=== PATIENT | male | born 1940 | race Caucasian/White ===

== ENCOUNTER 2022-02-14 23:12 | Emergency (ER) | payer OTHER, SELFPAY ==
--- NOTE | ~2022-02-14 | XR_ITS ---
EXAMINATION: XR chest 1V portable DATE: 02/14/2022 23:54 INDICATION: Chest pain post fall TECHNIQUE: frontal view of the chest was obtained. COMPARISON: Chest radiograph dated 06/30/2019 FINDINGS: Small lung volumes. Bibasilar opacities represent atelectasis or pneumonia. No pleural effusion or pn eumothorax. Calcified nodule at the right lung base consistent with old granulomatous disease. The ca rdiomediastinal silhouette is normal. Median sternotomy wires and mediastinal surgical clips are seen , likely from prior coronary artery bypass grafting. IMPRESSION: 1. Mild bibasilar opacities which represent atelectasis or pneumonia. Reviewed, dictated and finalized at location A.
--- NOTE | ~2022-02-14 | CT_ITS ---
EXAMINATION: CT brain wo con DATE: 02/14/2022 23:50 INDICATION: Status post fall. Head injury. TECHNIQUE: Computed tomography (CT) of the head was performed without intravenous contrast. The dose- length product was 681.00 mGy-cm. Automated exposure control and iterative reconstruction technique w ere employed. COMPARISON: None FINDINGS: Generalized atrophy. There are scattered moderate periventricular and subcortical white mat ter changes, most likely related to small vessel ischemic disease (microangiopathy). There is a chron ic right parietal lobe infarction. No acute intracranial hemorrhage, infarction, mass or mass effect. No ventriculomegaly or there is intracranial atherosclerosis. IMPRESSION: 1. No acute intracranial abnormality. 2: Chronic right parietal lobe infarction. 3: Chronic age-related findings. Reviewed, dictated and finalized at location A.
--- NOTE | ~2022-02-14 | XR_ITS ---
EXAMINATION: XR hip BI 2V w AP pelvis DATE: 02/15/2022 01:44 INDICATION: Fall with concern for hip injury TECHNIQUE: Anteroposterior view of the pelvis and anteroposterior and frog-leg lateral views of the l eft hip and anteroposterior and frog leg lateral views of the right hip and were obtained. COMPARISON: None. FINDINGS: Bilateral total hip arthroplasties which appear well-seated in near-anatomic alignment. Old healed av ulsion fracture of the left lesser trochanter. No acute fracture. Moderate heterotopic ossification t he soft tissues between the greater trochanters and the superolateral margins of the acetabula. Moder ate lower lumbar spondylosis. IMPRESSION: 1. Bilateral total hip arthroplasties. No acute osseous abnormality. Reviewed, dictated and finalized at location A.
[2022-02-14 23:13] VITALS: BP 109/93; PULSE 66; RESP 13; TEMP 37.2; O2SAT 94
--- NOTE | 2022-02-14 23:21 | ED.FALL ---
HPI - Fall General Chief Complaint: Fall Stated Complaint: GLF THEN CP AFTER History of Present Illness HPI Narrative: 81-year-old male with history of dementia presenting to the emergency department for evaluation after having a ground-level fall. states that they have both been sitting out in the yard and she went inside to prepare his dinner. When she came back outside she found that the patient had wandered further into the yard and did have a ground-level fall landing on his right side. Initially to the the patient had been complaining of some right-sided chest pain. Patient was treated with a nitro due to his chest pain. EMS was called. Upon arrival to the scene patient denied any complaints. Patient's blood pressure was low due to the nitro. Upon arrival to the emergency department patient denies complaints. Patient is at his normal mental baseline per his . Patient does have dementia and is only alert and oriented to self. Related Data Home Medications Medication Instructions Recorded Confirmed alogliptin 12.5 mg tablet 12.5 mg PO DAILY 07/01/19 07/01/19 aspirin 81 mg tablet,delayed 81 mg PO HS 07/01/19 07/01/19 release cefadroxil 500 mg capsule 500 mg PO BID 07/01/19 07/01/19 cholecalciferol (vitamin D3) 25 1,000 unit PO DAILY 07/01/19 07/01/19 mcg (1,000 unit) capsule (Vitamin D3) fluticasone propionate 50 1 spray intranasal DAILY PRN Runny 07/01/19 07/01/19 mcg/actuation nasal Nose spray,suspension (Flonase Allergy Relief) lovastatin 40 mg tablet 20 mg PO QPM 07/01/19 07/01/19 metoprolol succinate 25 mg 12.5 mg PO DAILY 07/01/19 07/01/19 tablet,extended release 24 hr olmesartan 20 mg tablet 30 mg PO DAILY 07/01/19 07/01/19 omeprazole 40 mg capsule,delayed 40 mg PO DAILY 07/01/19 07/01/19 release trazodone 50 mg tablet 50 mg PO HS PRN Insomnia 07/01/19 07/01/19 vitamin B complex (B 1 tablet PO DAILY 07/01/19 07/01/19 Complex-Vitamin B12 tablet) Allergies Allergy/AdvReac Type Severity Reaction Status Date / Time Penicillins Allergy Severe Hives Verified 02/14/22 23:25 Review of Systems Review of Systems: Patient denies any complaints but review of systems is limited due to her baseline mental status. [facility] Past Medical History Medical History (Updated 02/15/22 @ 00:41 by Cristian Hayes MD) Anxiety Bipolar disorder Depression Surgical History Surgical History (Updated 06/30/19 @ 20:51 by Margaret Murray) History of open heart surgery Family History Family History (Updated 07/01/19 @ 01:09 by Trish Blakely RN) Mother Diabetes mellitus Hypertension Social History Social History (Updated 06/30/19 @ 20:53 by Margaret Murray) Years smoked: 10 Smoking status: Former smoker Tobacco type: cigarettes Alcohol intake: current Drinks per week: 1 Substance use: current Substance use type: marijuana Other substance usage details: medical marijuana RS oil Last use: 06/30/19 Gender identity (if verbalized by the patient): Male Spiritual care concerns: No Agree to blood products: Yes Exam Narrative: APPEARANCE: Well appearing, no pain, no distress, well-nourished. HEAD: normocephalic, atraumatic. EYES: PERRLA/EOMI, conjunctivae clear. NOSE: Normal no drainage EARS:TMS clear with good light reflex. NECK: Supple. No adenopathy, no masses. RESPIRATORY: Airway patent, respirations nonlabored. Clear to auscultation bilaterally, no rales, rhonchi, wheezing. CARDIOVASCULAR: Regular rate and rhythm without murmurs rubs or gallops. No chest wall tenderness to palpation. ABDOMINAL: Soft, nontender, nondistended, normal bowel sounds. MUSCULOSKELETAL: Moves all extremities. Strength/ROM intact, No edema, No calf tenderness. NEURO: Alert. Cranial nerves II through XII intact. Grossly intact SKIN: Warm, dry. Normal Color Course Course Emergency Course: Patient was able to ambulate without issue. Chest x-ray showed no acute
[2022-02-15 00:14] VITALS: BP 99/69; PULSE 65; RESP 12
--- NOTE | 2022-02-15 01:14 | PC.NURSE ---
Pts family member expressed concerns over pts hip, requesting XR. EDP notified. New orders placed.
[2022-02-15 01:16] VITALS: BP 104/64; PULSE 64; RESP 16
[2022-02-15 02:15] VITALS: BP 99/69; PULSE 64; RESP 12; O2SAT 94
== END 2022-02-15 02:16 | disposition home or self-care (01) ==
PROVIDERS: Emergency Provider Emergency Medicine
DX: R07.89 Other chest pain (principal); F03.90 Unspecified dementia, unspecified severity, without behavioral disturbance, psychotic disturbance, mood disturbance, and anxiety; F41.9 Anxiety disorder, unspecified; F31.9 Bipolar disorder, unspecified; Z87.891 Personal history of nicotine dependence; Z79.82 Long term (current) use of aspirin; W18.30XA Fall on same level, unspecified, initial encounter
CPT/HCPCS: 70450; 71045; 73521; 99284

== ENCOUNTER 2022-05-19 18:17 | Inpatient (IN) | payer OTHER, SELFPAY ==
[2022-05-19] VITALS (11 sets, daily range): BP systolic 102–142; BP diastolic 50–103; PULSE 53–69; RESP 12–17; TEMP 36.9; O2SAT 88–99
--- NOTE | ~2022-05-19 | XR_ITS ---
XR chest 1V portable 05/19/2022 19:57 Indication: Hypoxia. Former smoker. Procedure: AP portable chest Comparison: 02/14/2022 Findings: Status post median sternotomy for CABG. Bilateral interstitial infiltrates with peribronchi al thickening. No significant effusion or pneumothorax. No acute osseous abnormality. Impression: 1: Bilateral interstitial infiltrates which may represent edema or pneumonia. Reviewed, dictated and finalized at location A. Impression: 1: Bilateral interstitial infiltrates which may represent edema or pneumonia.
--- NOTE | ~2022-05-19 | MR_ITS ---
EXAMINATION: MR brain/brain stem wo con DATE: 05/20/2022 09:08 INDICATION: Slurred speech. Weakness. TECHNIQUE: Magnetic resonance imaging (MRI) of the brain and brainstem was performed without intraven ous contrast. COMPARISON: Head CT 05/19/2022 FINDINGS: There is a punctate focus of old microhemorrhage in right frontal lobe. There is an old inf arct in right occipital lobe. There are scattered areas of nonspecific increased T2-weighted signal i ntensity in the cerebral white matter. There is an old infarct in right frontoparietal region. There is no acute ischemic infarct or abnormal mass lesion. The ventricles are normal in size for the degre e of brain volume loss. There is mild mucosal thickening in the ethmoid sinuses. There are likely jaelyn nges of ocular lens replacement surgeries. There are trace mastoid effusions. IMPRESSION: 1. Old infarcts in the right occipital lobe and right frontoparietal region. 2. Moderate nonspecific cerebral white matter disease, which likely represents chronic small vessel i schemic disease. Reviewed, dictated and finalized at location D. IMPRESSION: 1. Old infarcts in the right occipital lobe and right frontoparietal region. 2. Moderate nonspecific cerebral white matter disease, which likely represents chronic small vessel ischemic disease.
--- NOTE | ~2022-05-19 | CT_ITS ---
EXAMINATION: CT brain wo con DATE: 05/19/2022 19:08 INDICATION: Altered mental status. TECHNIQUE: Computed tomography (CT) of the head was performed without intravenous contrast. The dose- length product was 681.00 mGy-cm. Automated exposure control and iterative reconstruction technique w ere employed. COMPARISON: CT dated 02/14/2022 FINDINGS: Chronic right posterior parietal infarction. Generalized atrophy. There are scattered moder ate periventricular and subcortical white matter changes, most likely related to small vessel ischemi c disease (microangiopathy). No ventriculomegaly or midline shift. There is intracranial atherosclero sis. No depressed skull fractures. Paranasal sinuses and mastoids are pneumatized. IMPRESSION: 1. No acute intracranial abnormality. No significant interval change. Reviewed, dictated and finalized at location A.
--- NOTE | 2022-05-19 18:21 | ECG_ITS ---
Measurements Intervals [place] Rate: 62 P: PA: 0 QRS: 66 QRSD: 115 T: 69 QT: 449 QTc: 458 Interpretive Statements SUSPECT ATRIAL FIBRILLATION REDUCED ECG QUALITY BECAUSE OF BASELINE ARTIFACT ST DEVIATION AND MARKED T-WAVE ABNORMALITY, CONSIDER ANTEROLATERAL ISCHEMIA [-0.5+ mV T-WAVE IN I/aVL/V3-V6] COMPARED TO ECG 06/30/2019 19:51:03 THIS ELECTROCARDIOGRAM HAS MORE BASELINE ARTIFACT ATRIAL FIBRILLATION APPEARS TO HAVE REPLACED SINUS RHYTHM Electronically Signed On 05-20-2022 13:37:36 CDT by Cornelius Pang M.D.
[2022-05-19 18:29] LABS: Glucose Point of Care 167 mg/dl (65-105)
[2022-05-19 18:58] LABS: Basophils Absolute Auto 0.1 K/mm3 (0.0-0.1); Basophils Percent Auto 1.1 % (0.2-1.2); Eosinophils Absolute Auto 0.5 K/mm3 (0-0.3); Eosinophils Percent Auto 4.6 % (0-4.4); Hematocrit 53.1 % (42.0-52.0); Hemoglobin 17.1 g/dL (14.0-18.0); Immature Granulocyte Absolute 0.02 K/mm3 (0.00-0.031); Immature Granulocyte Percent A 0.2 % (0-0.5); Lymphocytes Absolute Auto 2.68 K/mm3 (0.9-3.2); Lymphocytes Percent Auto 24.4 % (18.3-44.2); Mean Corpuscular HGB Conc 32.2 g/dl (32-36); Mean Corpuscular Hemoglobin 32.1 pg (26-34); Mean Corpuscular Volume 99.8 fl (80-100); Monocytes Absolute Auto 0.7 K/mm3 (0.1-0.6); Monocytes Percent Auto 6.7 % (2.6-8.5); Neutrophils Absolute Auto 6.9 K/mm3 (1.3-6.7); Platelet Count Result 240 k/mm3 (150-375); Red Blood Count 5.32 M/mm3 (4.6-6.20); Red Cell Distribution Width 13.4 % (11.5-14.5)
[2022-05-19 18:59] LABS: Appearance Urine Clear (Clear); Bilirubin Urine 1+ (Negative); Blood Urine 1+ (Negative); Color Urine Yellow (Yellow); Glucose Urine UA 3+ mg/dL (Negative); Ketones Urine 1+ mg/dL (Negative); Leukocyte Esterase Ur Negative LEU/UL (Negative); Nitrate Urine Negative (Negative); Protein Urine Negative (Negative); Specific Grav Ur 1.015 (1.001-1.035); pH Urine 5.5 (5.0-9.0)
[2022-05-19 19:02] LABS: Mucus Urine Rare /lpf; WBC Urine 0-3 /hpf
[2022-05-19 19:07] LABS: Add Urine Microscopic? YES
[2022-05-19 19:08] LABS: INR 1.1; Prothrombin Time 13.6 Seconds (11.1-14.7)
[2022-05-19 19:08] LABS: Alanine Aminotransferase 19 U/L (6-50); Albumin Level 4.2 g/dL (3.5-5.1); Alkaline Phosphatase 87 U/L (38-126); Anion Gap 12 mmol/L (8-16); Aspartate Amino Transferase 27 U/L (17-59); Bilirubin,Total 0.8 mg/dL (0.2-1.3); Blood Urea Nitrogen 22 mg/dL (9-20); Carbon Dioxide 30 mmol/L (22-30); Chloride 104 mmol/L (98-107); Estimated CRCL calculation 53 ml/min; Estimated Glomerular Filt Rate > 60; Glucose 172 mg/dL (65-110); Potassium 3.9 mmol/L (3.4-5.0); Sodium 146 mmol/L (137-145)
[2022-05-19 19:09] LABS: Partial Thromboplastin Time 30.7 SECONDS (22.3-36.8)
--- NOTE | 2022-05-19 19:12 | ED.AMS ---
HPI - Altered Mental Status General Chief Complaint: Altered Mental Status <Viki Gonzalez PA-C - Last Filed: 05/20/22 01:29> Stated Complaint: AMS <BREEZY Velasquez Last Filed: 05/20/22 01:29> Time Seen by Provider: 05/19/22 18:26 <Viki Gonzalez PA-C - Last Filed: 05/20/22 01:29> Source: patient <BREEZY Velasquez Last Filed: 05/20/22 01:29> Mode of arrival: ambulatory <BREEZY Velasquez Last Filed: 05/20/22 01:29> Limitations: no limitations <BREEZY Velasquez Last Filed: 05/20/22 01:29> History of Present Illness HPI narrative: This is a 81-year-old male that presents to the emergency department for altered mental status. 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 He has not wanted to eat much. He has been sleeping most of the day. Has not had any specific complaints. Patient is alert and oriented to self which is his baseline due to history of dementia. <BREEZY Velasquez Last Filed: 05/20/22 01:29> Related Data Home Medications: Home Medications Medication Instructions Recorded Confirmed alogliptin 12.5 mg tablet 12.5 mg PO DAILY 07/01/19 07/01/19 aspirin 81 mg tablet,delayed 81 mg PO HS 07/01/19 07/01/19 release cefadroxil 500 mg capsule 500 mg PO BID 07/01/19 07/01/19 cholecalciferol (vitamin D3) 25 1,000 unit PO DAILY 07/01/19 07/01/19 mcg (1,000 unit) capsule (Vitamin D3) fluticasone propionate 50 1 spray intranasal DAILY PRN Runny 07/01/19 07/01/19 mcg/actuation nasal Nose spray,suspension (Flonase Allergy Relief) lovastatin 40 mg tablet 20 mg PO QPM 07/01/19 07/01/19 metoprolol succinate 25 mg 12.5 mg PO DAILY 07/01/19 07/01/19 tablet,extended release 24 hr olmesartan 20 mg tablet 30 mg PO DAILY 07/01/19 07/01/19 omeprazole 40 mg capsule,delayed 40 mg PO DAILY 07/01/19 07/01/19 release trazodone 50 mg tablet 50 mg PO HS PRN Insomnia 07/01/19 07/01/19 vitamin B complex (B 1 tablet PO DAILY 07/01/19 07/01/19 Complex-Vitamin B12 tablet) <Viki Gonzalez PA-C - Last Filed: 05/20/22 01:29> Allergies/Adverse Reactions: Allergies Allergy/AdvReac Type Severity Reaction Status Date / Time Penicillins Allergy Severe Hives Verified 02/14/22 23:25 morphine AdvReac Hallucinati Verified 05/19/22 23:28 ng <Viki Gonzalez PA-C - Last Filed: 05/20/22 01:29> Review of Systems Review of Systems: ROS unobtainable: Yes unobtainable due to medical condition <Viki Gonzalez PA-C - Last Filed: 05/20/22 01:29> [facility] Past Medical History Medical History: Medical History (Updated 05/20/22 @ 01:29 by Viki Gonzalez PA-C) Anxiety Bipolar disorder Depression Diabetes History of dementia <Viki Gonzalez PA-C - Last Filed: 05/20/22 01:29> Surgical History Surgical History: Surgical History (Updated 06/30/19 @ 20:51 by Margaret Murray) History of open heart surgery <Viki Gonzalez PA-C - Last Filed: 05/20/22 01:29> Family History Family History: Family History (Updated 05/20/22 @ 00:53 by Fauzia Valle RN) Mother Diabetes mellitus Hypertension Father No problems noted. Sibling Hypertension <Viki Gonzalez PA-C - Last Filed: 05/20/22 01:29> Social History Social History: Social History (Updated 06/30/19 @ 20:53 by Margaret Murray) Years smoked: 10 Smoking status: Former smoker Tobacco type: cigarettes Second hand tobacco smoke exposure: No Smoking end date: 12/12/98 Alcohol intake: unknown Drinks per week: 1 Substance use: unknown Substance use type: marijuana Other substance usage details: medical marijuana RS oil Last use: 06/30/19 Gender identity (if verbalized by the patient): Male Spiritual care concerns: No Agree to blood products: Yes <Viki Gonzalez PA-C - Last Filed: 05/20/22 01:29> Exam Narrative: GENERAL: Elderly, well-nourished, and i
[2022-05-19] MEDS: SODIUM CHLORIDE 0.9% IV 500 ML 999 ML IV CONT (19:30)
[2022-05-19 19:43] LABS: Lipase 18 U/L (23-300)
[2022-05-19 19:56] LABS: Troponin I < 0.012 ng/mL (0.000-0.034)
[2022-05-19 21:30] LABS: Influenza A QL RT-PCR Negative (Negative); Influenza B QL RT-PCR Negative (Negative); SARS-CoV-2 RNA PCR Negative
[2022-05-19 22:20] LABS: NT Pro B Type Natriuretic Pept 400 pg/mL (5-100)
--- NOTE | 2022-05-19 23:05 | PM.IMHP ---
H&P: HPI History of Present Illness Date/Time: 05/19/22 23:05 Chief Complaint: AMS Narrative: This is an 81-year-old male with past medical history significant for Alzheimer's dementia lives at home with who is his caregiver. Patient was brought to the emergency room due to altered mental status according to he was not his usual patient is unable to give any history due to advanced dementia. According to he has been sleeping most of the day however did not notice any fevers, rigors, chills, nausea, vomiting, or diarrhea, no cough, no sputum production, no shortness of breath. according to he seemed to have lost strength on his left side and was unable to make a fist with his left hand and was mumbling words thought that he had a stroke called EMS and patient was brought to the emergency room, preliminary workup was significant for: x-ray of the chest IMPRESSION: 1. No acute cardiopulmonary disease. CT head IMPRESSION: 1. No acute intracranial abnormality. No significant interval change. Review of Systems Review of Systems: ROS unobtainable: Yes unobtainable due to medical condition ( advanced Alzheimer's) [facility] Past Medical History Medical History (Updated 05/20/22 @ 03:51 by Celine Ohara MD) Anxiety Bipolar disorder Depression Diabetes History of dementia Surgical History Surgical History (Updated 06/30/19 @ 20:51 by Margaret Murray) History of open heart surgery Family History Family History (Updated 05/20/22 @ 00:53 by Fauzia Valle RN) Mother Diabetes mellitus Hypertension Father No problems noted. Sibling Hypertension Social History Social History (Updated 06/30/19 @ 20:53 by Margaret Murray) Years smoked: 10 Smoking status: Former smoker Tobacco type: cigarettes Second hand tobacco smoke exposure: No Smoking end date: 12/12/98 Alcohol intake: unknown Drinks per week: 1 Substance use: unknown Substance use type: marijuana Other substance usage details: medical marijuana RS oil Last use: 06/30/19 Gender identity (if verbalized by the patient): Male Spiritual care concerns: No Agree to blood products: Yes Meds Home Medications and Allergies Home Medications Medication Instructions Recorded Confirmed Type alogliptin 12.5 mg tablet 12.5 mg PO DAILY 07/01/19 07/01/19 History aspirin 81 mg tablet,delayed 81 mg PO HS 07/01/19 07/01/19 History release cefadroxil 500 mg capsule 500 mg PO BID 07/01/19 07/01/19 History cholecalciferol (vitamin D3) 25 1,000 unit PO DAILY 07/01/19 07/01/19 History mcg (1,000 unit) capsule (Vitamin D3) fluticasone propionate 50 1 spray intranasal DAILY PRN Runny 07/01/19 07/01/19 History mcg/actuation nasal Nose spray,suspension (Flonase Allergy Relief) lovastatin 40 mg tablet 20 mg PO QPM 07/01/19 07/01/19 History metoprolol succinate 25 mg 12.5 mg PO DAILY 07/01/19 07/01/19 History tablet,extended release 24 hr olmesartan 20 mg tablet 30 mg PO DAILY 07/01/19 07/01/19 History omeprazole 40 mg capsule,delayed 40 mg PO DAILY 07/01/19 07/01/19 History release trazodone 50 mg tablet 50 mg PO HS PRN Insomnia 07/01/19 07/01/19 History vitamin B complex (B 1 tablet PO DAILY 07/01/19 07/01/19 History Complex-Vitamin B12 tablet) Allergies Allergy/AdvReac Type Severity Reaction Status Date / Time Penicillins Allergy Severe Hives Verified 02/14/22 23:25 morphine AdvReac Hallucinati Verified 05/19/22 23:28 ng Vital Signs Vital Signs - 24 hr 05/19/22 18:21 05/19/22 18:45 05/19/22 19:15 Temperature 98.5 F Pulse Rate 69 69 63 Respiratory Rate 14 14 16 Blood Pressure 142/103 H 114/69 102/71 Pulse Oximetry 98 96 92 Oxygen Delivery Room Air 05/19/22 20:01 05/19/22 20:31 05/19/22 21:19 Temperature Pulse Rate 53 L 56 L 62 Respiratory Rate 12 12 12 Blood Pressure 107/82 Pulse Oximetry 97 99 98 Oxygen Delivery 05/19/22
--- NOTE | 2022-05-19 23:16 | PC.NURSE ---
Assumed care of pt at this time. Pt resting on stretcher, alert to person. Pts at bedside updated on POC.
[2022-05-20] VITALS (12 sets, daily range): BP systolic 90–118; BP diastolic 49–75; PULSE 56–75; RESP 18–21; TEMP 36.2–36.6; O2SAT 93–100; BMI 29.0
--- NOTE | 2022-05-20 | ECHO_ITS ---
Patient Info Name: Richard Davis Age: 81 years : 1940 Gender: Male Ht: 67 in Wt: 185 lbs BSA: 2.01 m2 HR: 89 bpm BP: 111 / 65 mmHg Heart Rhythm: Atrial Fibrillation Technical Quality: Fair Exam Date: 05/20/2022 10:37 AM Exam Location: [facility] Pulmonary Exam Room: 257 Patient Status: Inpatient Admit Date: 05/20/2022 Staff Ordering Physician: Celine Ohara MD Senior Interaction Designer: Shaina Chan RDCS Attending Provider: Celine Ohara MD Referring Physician: Lev ROTHMAN; Exam Type: CA echo doppler color flow Study Info Indications - afib Complete two-dimensional, color flow and Doppler transthoracic echocardiogram is performed. Summary 1. Complete two-dimensional, color flow and Doppler transthoracic echocardiogram is performed. 2. Left ventricular chamber dimension is normal. 3. Left ventricular systolic function is normal, estimated at 60-65%. 4. There is mildly increased left ventricular wall thickness. 5. The left ventricular diastolic function is normal. 6. E/e' 9 is minimally elevated. 7. Atrial fibrillation. 8. Left atrial chamber dimension is moderately enlarged. 9. There is mild aortic valve sclerosis. 10. The mitral valve has mildly calcified annulus. 11. There is trace tricuspid valve regurgitation. 12. No pulmonary hypertension, estimated pulmonary arterial systolic pressure is 28 mmHg. Left Ventricle E/e' 9 is minimally elevated. Atrial fibrillation. Left ventricular chamber dimension is normal. Left ventricular systolic function is normal, estimated at 60-65%. There is mildly increased left ventricular wall thickness. The left ventricular diastolic function is normal. Right Ventricle Right ventricular chamber dimension is not well visualized. Left Atria Left atrial chamber dimension is moderately enlarged. Right Atria Right atrial chamber dimension is normal. Aortic Valve The aortic valve is trileaflet. There is mild aortic valve sclerosis. There is no aortic valve stenosis. There is no aortic valve regurgitation. Pulmonic Valve There is no pulmonic regurgitation. Mitral Valve The mitral valve has mildly calcified annulus. There is no mitral valve stenosis. There is no mitral valve regurgitation. Tricuspid Valve There is trace tricuspid valve regurgitation. No pulmonary hypertension, estimated pulmonary arterial systolic pressure is 28 mmHg. Pericardium/Pleural There is no pericardial effusion. Inferior Vena Cava Inferior vena cava is not well visualized. Aorta The aortic root size at the sinus of Valsalva is normal. Left Ventricular Outflow Tract Name Value Normal LVOT 2D LVOT Diameter 2.0 cm LVOT Doppler LVOT Peak Velocity 73 cm/s LVOT Peak Gradient 2 mmHg LVOT Mean Gradient 1 mmHg LVOT VTI 12 cm LVOT VTI/AV VTI Ratio 0.8 LVOT Stroke Volume 37 ml Pulmonic Valve
--- NOTE | 2022-05-20 00:24 | ADMGEN ---
This patient, Richard Davis, was admitted to Medical Room 257-01. Patient/family oriented to hospital policies and general routines including ID bracelet, bed and alarms, visiting hours, pain management, procedures, bathroom and other care routines, personal items, smoking policy, room service/diet, and visiting hours. Information on how to activate the Rapid Response Team has been discussed. Patient/Family are encouraged to report perceived risks to care and to ask questions if they do not understand what they are told or what they should do.
[2022-05-20] MEDS: HALOPERIDOL LACTATE 5 MG/ML VIAL IM (03:58)
[2022-05-20 05:24] LABS: Basophils Absolute Auto 0.1 K/mm3 (0.0-0.1); Eosinophils Absolute Auto 0.6 K/mm3 (0-0.3); Eosinophils Percent Auto 4.9 % (0-4.4); Hematocrit 50.9 % (42.0-52.0); Hemoglobin 15.9 g/dL (14.0-18.0); Immature Granulocyte Absolute 0.03 K/mm3 (0.00-0.031); Immature Granulocyte Percent A 0.3 % (0-0.5); Lymphocytes Absolute Auto 3.54 K/mm3 (0.9-3.2); Mean Corpuscular HGB Conc 31.2 g/dl (32-36); Mean Corpuscular Hemoglobin 32.1 pg (26-34); Mean Corpuscular Volume 102.6 fl (80-100); Mean Platelet Volume 9.7 fl (7.4-10.4); Monocytes Absolute Auto 0.9 K/mm3 (0.1-0.6); Neutrophils Absolute Auto 6.3 K/mm3 (1.3-6.7); Neutrophils Percent Auto 54.8 % (45.5-73.1); Platelet Count Result 209 k/mm3 (150-375); Red Blood Count 4.96 M/mm3 (4.6-6.20); Red Cell Distribution Width 13.3 % (11.5-14.5); White Blood Count 11.4 K/mm3 (4.5-10.0)
[2022-05-20 05:26] LABS: Alanine Aminotransferase 17 U/L (6-50); Albumin Level 3.8 g/dL (3.5-5.1); Alkaline Phosphatase 84 U/L (38-126); Anion Gap 11 mmol/L (8-16); Aspartate Amino Transferase 25 U/L (17-59); Bilirubin,Total 0.9 mg/dL (0.2-1.3); Blood Urea Nitrogen 20 mg/dL (9-20); Calcium 8.3 mg/dL (8.4-10.2); Carbon Dioxide 27 mmol/L (22-30); Chloride 102 mmol/L (98-107); Estimated CRCL calculation 53 ml/min; Estimated Glomerular Filt Rate > 60; Glucose 105 mg/dL (65-110); Potassium 3.5 mmol/L (3.4-5.0); Sodium 140 mmol/L (137-145)
--- NOTE | 2022-05-20 06:33 | ECG_ITS ---
Measurements Intervals [place] Rate: 57 P: [place]: 0 QRS: 35 QRSD: 115 T: 35 QT: 507 QTc: 495 Interpretive Statements ATRIAL FLUTTER/TACHYCARDIA WITH CONTROLLED VENTRICULAR RESPONSE MODERATE INTRAVENTRICULAR CONDUCTION DELAY [110+ ms QRS DURATION] NONSPECIFIC T-WAVE AT COMPARED TO ECG 05/19/2022 19:22:57 NO SIGNIFICANT CHANGE Electronically Signed On 05-20-2022 13:42:11 CDT by Cornelius Pang M.D.
[2022-05-20] MEDS: GLUCAGON FOR INJ 1 MG VIAL IM (06:38)
[2022-05-20 06:53] LABS: Glucose Point of Care 116 mg/dl (65-105)
[2022-05-20] MEDS: ENOXAPARIN 40 MG/0.4 ML SYRINGE SUB-Q (08:23)
[2022-05-20] MEDS: PANTOPRAZOLE 40 MG TABLET PO ×2 (08:23→17:19)
[2022-05-20] MEDS: OLMESARTAN MEDOXOMIL 10 MG TABLET 30 MG PO (08:23)
[2022-05-20 09:29] LABS: Glucose Point of Care 115 mg/dl (65-105)
[2022-05-20 11:58] LABS: Glucose Point of Care 151 mg/dl (65-105)
--- NOTE | 2022-05-20 14:00 | P.PNIM_ITS ---
Progress Note: A&P Assessment and Plan (1) Pneumonia: Qualifiers: Laterality: bilateral Lung location: lower lobe of lung Pneumonia type: due to unspecified organism Qualified Code(s): J18.9 - Pneumonia, unspecified organism Code(s): J18.9 - Pneumonia, unspecified organism Status: Acute Assessment and Plan: * Chest xray indicated bilateral pulmonary infiltrates, edema vs pna * Blood cultures pending * no notable shortness of breath * Ceftriaxone and azithromycin ordered * Supplemental oxygen, wean to maintain saturation >90% * Was able to wean to room air, saturation was 99 * Trend labs * Adjust therapy as indicated (2) Acute metabolic encephalopathy: Code(s): G93.41 - Metabolic encephalopathy Status: Acute Assessment and Plan: * Presented with altered mental status, slurred speech, and weakness * Head CT shows no abnormality * 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 * Could be related to chronic dementia, infection (PNA), or possible stroke * Trend mental status * adjust therapy accordingly (3) Acute hypoxemic respiratory failure: Code(s): J96.01 - Acute respiratory failure with hypoxia Status: Acute Assessment and Plan: * supplemental oxygen as needed * wean off as possible (4) Alzheimer's dementia: Code(s): G30.9 - Alzheimer's disease, unspecified; F02.80 - Dementia in other diseases classified elsewhere, unspecified severity, without behavioral disturbance, psychotic disturbance, mood disturbance, and anxiety Status: Acute Assessment and Plan: * end stage * A&O x 1 * Baseline according to the ED is A&O x1 * 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 (5) Diabetes: Code(s): E11.9 - Type 2 diabetes mellitus without complications Status: Acute Assessment and Plan: * Glucose 116 * Trend glucose * Accu AC/HS * ISS * Hypoglycemic protocol * Adjust therapy as indicated (6) Atrial fibrillation: Qualifiers: Atrial fibrillation type: unspecified Qualified Code(s): I48.91 - Unspecified atrial fibrillation Code(s): I48.91 - Unspecified atrial fibrillation Status: Acute Assessment and Plan: * rate controlled * No anticoagulation Time Spent With Patient Time with patient: Greater than 35 minutes Subjective Date/time seen: 05/20/22 1400 Interval history: 05/20/22 1400 Patient appears to be comfortable. Currently he is laying in bed. His daughter was present and was feeding him. He kept wring his hands and stated that they hurt. His daughter stated that she felt that he was in his normal state of health. Could not get a complete review of systems due to mental status. 05/19/22? 23:05 ? This is an 81-year-old male with past medical history significant for Alzheimer's dementia? lives at home with who is his caregiver.? Patient was brought to the emergency room due to altered mental status according to he was not his usual patient is unable to give any history due to advanced dementia.? According to he has been sleeping most of the day however did not notice any fevers, rigors, chills, nausea, vomiting, or diarrhea,? no cough, no sputum production, no shortness of breath. according to he seemed to have lost strength on his left side and was unable to make a fist with his
--- NOTE | 2022-05-20 14:00 | PM.IMPN ---
Progress Note: A&P Assessment and Plan (1) Pneumonia: Qualifiers: Laterality: bilateral Lung location: lower lobe of lung Pneumonia type: due to unspecified organism Qualified Code(s): J18.9 - Pneumonia, unspecified organism Code(s): J18.9 - Pneumonia, unspecified organism Status: Acute Assessment and Plan: Chest xray indicated bilateral pulmonary infiltrates, edema vs pna Blood cultures pending no notable shortness of breath Ceftriaxone and azithromycin ordered Supplemental oxygen, wean to maintain saturation >90% Was able to wean to room air, saturation was 99 Trend labs Adjust therapy as indicated (2) Acute metabolic encephalopathy: Code(s): G93.41 - Metabolic encephalopathy Status: Acute Assessment and Plan: Presented with altered mental status, slurred speech, and weakness Head CT shows no abnormality 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 Could be related to chronic dementia, infection (PNA), or possible stroke Trend mental status adjust therapy accordingly (3) Acute hypoxemic respiratory failure: Code(s): J96.01 - Acute respiratory failure with hypoxia Status: Acute Assessment and Plan: supplemental oxygen as needed wean off as possible (4) Alzheimer's dementia: Code(s): G30.9 - Alzheimer's disease, unspecified; F02.80 - Dementia in other diseases classified elsewhere, unspecified severity, without behavioral disturbance, psychotic disturbance, mood disturbance, and anxiety Status: Acute Assessment and Plan: end stage A&O x 1 Baseline according to the ED is A&O x1 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 (5) Diabetes: Code(s): E11.9 - Type 2 diabetes mellitus without complications Status: Acute Assessment and Plan: Glucose 116 Trend glucose Accu AC/HS ISS Hypoglycemic protocol Adjust therapy as indicated (6) Atrial fibrillation: Qualifiers: Atrial fibrillation type: unspecified Qualified Code(s): I48.91 - Unspecified atrial fibrillation Code(s): I48.91 - Unspecified atrial fibrillation Status: Acute Assessment and Plan: rate controlled No anticoagulation Time Spent With Patient Time with patient: Greater than 35 minutes Subjective Date/time seen: 05/20/22 1400 Interval history: 05/20/221399 Patient appears to be comfortable. Currently he is laying in bed. His daughter was present and was feeding him. He kept wring his hands and stated that they hurt. His daughter stated that she felt that he was in his normal state of health. Could not get a complete review of systems due to mental status. 05/19/22? 23:05 ? This is an 81-year-old male with past medical history significant for Alzheimer's dementia? lives at home with who is his caregiver.? Patient was brought to the emergency room due to altered mental status according to he was not his usual patient is unable to give any history due to advanced dementia.? According to he has been sleeping most of the day however did not notice any fevers, rigors, chills, nausea, vomiting, or diarrhea,? no cough, no sputum production, no shortness of breath. according to he seemed to have lost strength on his left side and was unable to make a fist with his left hand and was mumbling words thought that he had a stroke called EMS and patient was brought to the emergency room. Review of Systems Review of Systems: All systems reviewed & are unremarkable except as noted in HPI and below ROS unobtainable: Yes unobtainable due to medical condition ( advanced Alzheimer's) Exam Const: General: comfortable, no acute distress, well developed, ill appearing, lethargic, average body habitus and other ( patient with blank staring look in his face) Nutritional Appearance: average body habitus Orientation/c
[2022-05-20] MEDS: POTASSIUM CHLORIDE 20 MEQ TABLET PO (15:35)
[2022-05-20] MEDS: FUROSEMIDE INJ 40 MG/4 ML VIAL IV PUSH (15:35)
[2022-05-20 17:00] LABS: Glucose Point of Care 152 mg/dl (65-105)
[2022-05-20] MEDS: GABAPENTIN 100 MG CAPSULE PO (17:19)
[2022-05-20] MEDS: LOVASTATIN 20 MG TABLET PO (17:20)
[2022-05-21] VITALS (10 sets, daily range): BP systolic 102–112; BP diastolic 59–81; PULSE 62–73; RESP 16–18; TEMP 36.3–36.8; O2SAT 93–96
[2022-05-21 05:04] LABS: Basophils Absolute Auto 0.1 K/mm3 (0.0-0.1); Basophils Percent Auto 0.9 % (0.2-1.2); Eosinophils Absolute Auto 0.6 K/mm3 (0-0.3); Eosinophils Percent Auto 5.3 % (0-4.4); Hematocrit 49.7 % (42.0-52.0); Hemoglobin 16.3 g/dL (14.0-18.0); Immature Granulocyte Absolute 0.03 K/mm3 (0.00-0.031); Immature Granulocyte Percent A 0.3 % (0-0.5); Lymphocytes Absolute Auto 3.48 K/mm3 (0.9-3.2); Lymphocytes Percent Auto 29.5 % (18.3-44.2); Mean Corpuscular HGB Conc 32.8 g/dl (32-36); Mean Corpuscular Hemoglobin 31.8 pg (26-34); Mean Corpuscular Volume 97.1 fl (80-100); Mean Platelet Volume 9.7 fl (7.4-10.4); Monocytes Percent Auto 8.6 % (2.6-8.5); Neutrophils Absolute Auto 6.5 K/mm3 (1.3-6.7); Neutrophils Percent Auto 55.4 % (45.5-73.1); Platelet Count Result 234 k/mm3 (150-375); Red Blood Count 5.12 M/mm3 (4.6-6.20); White Blood Count 11.8 K/mm3 (4.5-10.0)
[2022-05-21 05:24] LABS: Alanine Aminotransferase 17 U/L (6-50); Albumin Level 3.9 g/dL (3.5-5.1); Alkaline Phosphatase 91 U/L (38-126); Anion Gap 9 mmol/L (8-16); Aspartate Amino Transferase 29 U/L (17-59); Bilirubin,Total 0.8 mg/dL (0.2-1.3); Blood Urea Nitrogen 22 mg/dL (9-20); Calcium 8.2 mg/dL (8.4-10.2); Carbon Dioxide 30 mmol/L (22-30); Chloride 99 mmol/L (98-107); Estimated CRCL calculation 44 ml/min; Estimated Glomerular Filt Rate > 60; Glucose 134 mg/dL (65-110); Potassium 3.3 mmol/L (3.4-5.0); Sodium 138 mmol/L (137-145)
[2022-05-21 09:19] LABS: Glucose Point of Care 138 mg/dl (65-105)
[2022-05-21] MEDS: ENOXAPARIN 40 MG/0.4 ML SYRINGE SUB-Q (09:32)
[2022-05-21] MEDS: GABAPENTIN 100 MG CAPSULE PO ×3 (09:33→16:48)
[2022-05-21] MEDS: ESCITALOPRAM OXALATE 10 MG TABLET 20 MG PO (09:33)
[2022-05-21] MEDS: PANTOPRAZOLE 40 MG TABLET PO ×2 (09:33→16:48)
--- NOTE | 2022-05-21 10:12 | PCSTNOTE ---
Bedside swallowing evaluation completed. Patient's daughter present and provided answers to questions and assisted in cueing patient to respond as well. Patient positioned upright in bed, but leaning slightly to the left. Some minimal left sided facial weakness, however, lingual mobility is not impaired on left. Recommendation: Soft and bite-sized diet, level 6. Thin liquids. Utilize swallowing precautions (please refer to swallowing precaution recommendations section . Patient needs supervision and assistance to eat/drink. No swallowing therapy is recommended at this time. Thank you for the referral of this patient.
--- NOTE | 2022-05-21 11:30 | P.PNIM_ITS ---
Progress Note: A&P Assessment and Plan (1) Pneumonia: Qualifiers: Laterality: bilateral Lung location: lower lobe of lung Pneumonia type: due to unspecified organism Qualified Code(s): J18.9 - Pneumonia, unspecified organism Code(s): J18.9 - Pneumonia, unspecified organism Status: Acute Assessment and Plan: * Chest xray indicated bilateral pulmonary infiltrates, edema vs pna * Blood cultures grew gram positive cocci in chains * no notable shortness of breath * Ceftriaxone, Azithromycin, and Vancomycin, continue for now * Supplemental oxygen, wean to maintain saturation >90% * Was able to wean to room air, saturation was 99% * Trend labs * Adjust therapy as indicated (2) Acute metabolic encephalopathy: Code(s): G93.41 - Metabolic encephalopathy Status: Acute Assessment and Plan: * Presented with altered mental status, slurred speech, and weakness * Head CT shows no abnormality * 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 * Could be related to chronic dementia, infection (PNA), or possible stroke * Trend mental status * adjust therapy accordingly (3) Acute hypoxemic respiratory failure: Code(s): J96.01 - Acute respiratory failure with hypoxia Status: Acute Assessment and Plan: * supplemental oxygen as needed * wean off as possible (4) Alzheimer's dementia: Code(s): G30.9 - Alzheimer's disease, unspecified; F02.80 - Dementia in other diseases classified elsewhere, unspecified severity, without behavioral disturbance, psychotic disturbance, mood disturbance, and anxiety Status: Acute Assessment and Plan: * end stage * A&O x 1 * Baseline according to the ED is A&O x1 * 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 (5) Diabetes: Code(s): E11.9 - Type 2 diabetes mellitus without complications Status: Acute Assessment and Plan: * Glucose 134 * Trend glucose * Accu AC/HS * ISS * Hypoglycemic protocol * Adjust therapy as indicated (6) Atrial fibrillation: Qualifiers: Atrial fibrillation type: unspecified Qualified Code(s): I48.91 - Unspecified atrial fibrillation Code(s): I48.91 - Unspecified atrial fibrillation Status: Acute Assessment and Plan: * rate controlled * No anticoagulation (7) Bacteremia: Code(s): R78.81 - Bacteremia Status: Acute Assessment and Plan: * Blood culture grew gram cocci in chains in the anaerobic bottle only * Vancomycin added * WBC stable, however, trending up, currently 11.8 * Continue to trend * Could be a contaminate * Adjust sensitivities as indicated (8) Hypotension: Code(s): I95.9 - Hypotension, unspecified Status: Acute Assessment and Plan: * BPs are labile * All home blood pressure medications are on hold * Continue to trend BP * Adjust therapy as indicated Time Spent With Patient Time with patient: Greater than 35 minutes Subjective Date/time seen: 05/21/221129 Interval history: 05/21/221129 Patient seems to be doing a lot better today. Patient is alert and active in the room. He did state that his hand still hurt. He did not have any other complaints however when I asked him if he was having chest pain eat
--- NOTE | 2022-05-21 11:30 | PM.IMPN ---
Progress Note: A&P Assessment and Plan (1) Pneumonia: Qualifiers: Laterality: bilateral Lung location: lower lobe of lung Pneumonia type: due to unspecified organism Qualified Code(s): J18.9 - Pneumonia, unspecified organism Code(s): J18.9 - Pneumonia, unspecified organism Status: Acute Assessment and Plan: Chest xray indicated bilateral pulmonary infiltrates, edema vs pna Blood cultures grew gram positive cocci in chains no notable shortness of breath Ceftriaxone, Azithromycin, and Vancomycin, continue for now Supplemental oxygen, wean to maintain saturation >90% Was able to wean to room air, saturation was 99% Trend labs Adjust therapy as indicated (2) Acute metabolic encephalopathy: Code(s): G93.41 - Metabolic encephalopathy Status: Acute Assessment and Plan: Presented with altered mental status, slurred speech, and weakness Head CT shows no abnormality 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 Could be related to chronic dementia, infection (PNA), or possible stroke Trend mental status adjust therapy accordingly (3) Acute hypoxemic respiratory failure: Code(s): J96.01 - Acute respiratory failure with hypoxia Status: Acute Assessment and Plan: supplemental oxygen as needed wean off as possible (4) Alzheimer's dementia: Code(s): G30.9 - Alzheimer's disease, unspecified; F02.80 - Dementia in other diseases classified elsewhere, unspecified severity, without behavioral disturbance, psychotic disturbance, mood disturbance, and anxiety Status: Acute Assessment and Plan: end stage A&O x 1 Baseline according to the ED is A&O x1 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 (5) Diabetes: Code(s): E11.9 - Type 2 diabetes mellitus without complications Status: Acute Assessment and Plan: Glucose 134 Trend glucose Accu AC/HS ISS Hypoglycemic protocol Adjust therapy as indicated (6) Atrial fibrillation: Qualifiers: Atrial fibrillation type: unspecified Qualified Code(s): I48.91 - Unspecified atrial fibrillation Code(s): I48.91 - Unspecified atrial fibrillation Status: Acute Assessment and Plan: rate controlled No anticoagulation (7) Bacteremia: Code(s): R78.81 - Bacteremia Status: Acute Assessment and Plan: Blood culture grew gram cocci in chains in the anaerobic bottle only Vancomycin added WBC stable, however, trending up, currently 11.8 Continue to trend Could be a contaminate Adjust sensitivities as indicated (8) Hypotension: Code(s): I95.9 - Hypotension, unspecified Status: Acute Assessment and Plan: BPs are labile All home blood pressure medications are on hold Continue to trend BP Adjust therapy as indicated Time Spent With Patient Time with patient: Greater than 35 minutes Subjective Date/time seen: 05/21/221129 Interval history: 05/21/221129 Patient seems to be doing a lot better today. Patient is alert and active in the room. He did state that his hand still hurt. He did not have any other complaints however when I asked him if he was having chest pain eat say yes there sitting over there. He is able to feed himself. Talked to the family about further needs. Family would like for him to get out of bed will consult PT and OT at this time. Will talk to attending ambulatory care about possible rehab post discharge. I have also discussed with the family about current findings in the blood cultures however patient does not exhibit any signs of bacteremia at this time. Will await sensitivities. Complete review of systems was unable to be obtained due to patient's mental status. Family was concerned about hypotension at this time however I explained to them that it seems to be reasonable at this time
[2022-05-21 12:09] LABS: Glucose Point of Care 155 mg/dl (65-105)
[2022-05-21 16:39] LABS: Glucose Point of Care 128 mg/dl (65-105)
[2022-05-21] MEDS: LOVASTATIN 20 MG TABLET PO (17:17)
[2022-05-21 20:37] LABS: Glucose Point of Care 182 mg/dl (65-105)
[2022-05-21] MEDS: ASPIRIN 81 MG ENTERIC TABLET PO (20:42)
[2022-05-21] MEDS: LORATADINE 10 MG TABLET PO (20:42)
[2022-05-22] VITALS (9 sets, daily range): BP systolic 101–115; BP diastolic 53–74; PULSE 66–135; RESP 14–20; TEMP 36.2–36.8; O2SAT 94–98
[2022-05-22 06:00] LABS: Basophils Absolute Auto 0.1 K/mm3 (0.0-0.1); Basophils Percent Auto 0.9 % (0.2-1.2); Eosinophils Absolute Auto 0.7 K/mm3 (0-0.3); Hematocrit 49.3 % (42.0-52.0); Hemoglobin 16.4 g/dL (14.0-18.0); Immature Granulocyte Absolute 0.03 K/mm3 (0.00-0.031); Immature Granulocyte Percent A 0.3 % (0-0.5); Lymphocytes Absolute Auto 3.32 K/mm3 (0.9-3.2); Lymphocytes Percent Auto 30.7 % (18.3-44.2); Mean Corpuscular HGB Conc 33.3 g/dl (32-36); Mean Corpuscular Hemoglobin 31.9 pg (26-34); Mean Corpuscular Volume 95.9 fl (80-100); Mean Platelet Volume 9.7 fl (7.4-10.4); Monocytes Absolute Auto 0.9 K/mm3 (0.1-0.6); Monocytes Percent Auto 8.7 % (2.6-8.5); Neutrophils Absolute Auto 5.8 K/mm3 (1.3-6.7); Neutrophils Percent Auto 53.4 % (45.5-73.1); Platelet Count Result 234 k/mm3 (150-375); Red Blood Count 5.14 M/mm3 (4.6-6.20); Red Cell Distribution Width 12.8 % (11.5-14.5); White Blood Count 10.8 K/mm3 (4.5-10.0)
[2022-05-22 06:10] LABS: Alanine Aminotransferase 21 U/L (6-50); Albumin Level 3.9 g/dL (3.5-5.1); Alkaline Phosphatase 98 U/L (38-126); Anion Gap 8 mmol/L (8-16); Aspartate Amino Transferase 33 U/L (17-59); Bilirubin,Total 0.7 mg/dL (0.2-1.3); Blood Urea Nitrogen 21 mg/dL (9-20); Calcium 8.4 mg/dL (8.4-10.2); Carbon Dioxide 30 mmol/L (22-30); Chloride 98 mmol/L (98-107); Estimated CRCL calculation 48 ml/min; Estimated Glomerular Filt Rate > 60; Glucose 114 mg/dL (65-110); Magnesium 2.1 mg/dL (1.6-2.3); Potassium 3.6 mmol/L (3.4-5.0); Sodium 136 mmol/L (137-145)
[2022-05-22 08:48] LABS: Glucose Point of Care 128 mg/dl (65-105)
[2022-05-22] MEDS: PANTOPRAZOLE 40 MG TABLET PO ×2 (09:51→17:36)
[2022-05-22] MEDS: GABAPENTIN 100 MG CAPSULE PO ×3 (09:51→17:36)
[2022-05-22] MEDS: ESCITALOPRAM OXALATE 10 MG TABLET 20 MG PO (09:51)
[2022-05-22] MEDS: ENOXAPARIN 40 MG/0.4 ML SYRINGE SUB-Q (09:52)
[2022-05-22 11:43] LABS: Glucose Point of Care 207 mg/dl (65-105)
--- NOTE | 2022-05-22 15:00 | P.PNIM_ITS ---
Progress Note: A&P Assessment and Plan (1) Pneumonia: Qualifiers: Laterality: bilateral Lung location: lower lobe of lung Pneumonia type: due to unspecified organism Qualified Code(s): J18.9 - Pneumonia, unspecified organism Code(s): J18.9 - Pneumonia, unspecified organism Status: Acute Assessment and Plan: * Chest xray indicated bilateral pulmonary infiltrates, edema vs pna * Blood cultures grew gram positive cocci in chains * no notable shortness of breath * Ceftriaxone, Azithromycin, and Vancomycin, continue for now * Supplemental oxygen, wean to maintain saturation >90% * Was able to wean to room air, saturation was 99% * Trend labs * Adjust therapy as indicated (2) Acute metabolic encephalopathy: Code(s): G93.41 - Metabolic encephalopathy Status: Acute Assessment and Plan: * Presented with altered mental status, slurred speech, and weakness * Head CT shows no abnormality * 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 * Could be related to chronic dementia, infection (PNA), or possible stroke * Trend mental status * adjust therapy accordingly * Seems to be resolving (3) Acute hypoxemic respiratory failure: Code(s): J96.01 - Acute respiratory failure with hypoxia Status: Acute Assessment and Plan: * Resolved * supplemental oxygen as needed * wean off as possible (4) Alzheimer's dementia: Code(s): G30.9 - Alzheimer's disease, unspecified; F02.80 - Dementia in other diseases classified elsewhere, unspecified severity, without behavioral disturbance, psychotic disturbance, mood disturbance, and anxiety Status: Acute Assessment and Plan: * end stage * A&O x 1 * Baseline according to the ED is A&O x1 * 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 (5) Diabetes: Code(s): E11.9 - Type 2 diabetes mellitus without complications Status: Acute Assessment and Plan: * Glucose 114 * Trend glucose * Accu AC/HS * ISS * Hypoglycemic protocol * Adjust therapy as indicated (6) Atrial fibrillation: Qualifiers: Atrial fibrillation type: unspecified Qualified Code(s): I48.91 - Unspecified atrial fibrillation Code(s): I48.91 - Unspecified atrial fibrillation Status: Acute Assessment and Plan: * rate controlled * No anticoagulation (7) Bacteremia: Code(s): R78.81 - Bacteremia Status: Acute Assessment and Plan: * Blood culture grew enterococcus faecalis, staphylococcus haemolytica, and staphylococcus epodermis in the anaerobic bottle only * Vancomycin added * WBC stable trending down, currently 10.8 * Continue to trend * Seems to be more of a contaminate * Repeat blood cultures show NGTD * Adjust sensitivities as indicated (8) Hypotension: Code(s): I95.9 - Hypotension, unspecified Status: Acute Assessment and Plan: * BPs are labile, more stable * All home blood pressure medications are on hold * Continue to trend BP * Adjust therapy as indicated Time Spent With Patient Time: about 35 minutes of talking with the patient and his family Time with patient: Greater than 35 minutes Subjective Date/time seen: 05/22/22 1500 Interval history: 05/22
--- NOTE | 2022-05-22 15:00 | PM.IMPN ---
Progress Note: A&P Assessment and Plan (1) Pneumonia: Qualifiers: Laterality: bilateral Lung location: lower lobe of lung Pneumonia type: due to unspecified organism Qualified Code(s): J18.9 - Pneumonia, unspecified organism Code(s): J18.9 - Pneumonia, unspecified organism Status: Acute Assessment and Plan: Chest xray indicated bilateral pulmonary infiltrates, edema vs pna Blood cultures grew gram positive cocci in chains no notable shortness of breath Ceftriaxone, Azithromycin, and Vancomycin, continue for now Supplemental oxygen, wean to maintain saturation >90% Was able to wean to room air, saturation was 99% Trend labs Adjust therapy as indicated (2) Acute metabolic encephalopathy: Code(s): G93.41 - Metabolic encephalopathy Status: Acute Assessment and Plan: Presented with altered mental status, slurred speech, and weakness Head CT shows no abnormality 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 Could be related to chronic dementia, infection (PNA), or possible stroke Trend mental status adjust therapy accordingly Seems to be resolving (3) Acute hypoxemic respiratory failure: Code(s): J96.01 - Acute respiratory failure with hypoxia Status: Acute Assessment and Plan: Resolved supplemental oxygen as needed wean off as possible (4) Alzheimer's dementia: Code(s): G30.9 - Alzheimer's disease, unspecified; F02.80 - Dementia in other diseases classified elsewhere, unspecified severity, without behavioral disturbance, psychotic disturbance, mood disturbance, and anxiety Status: Acute Assessment and Plan: end stage A&O x 1 Baseline according to the ED is A&O x1 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 (5) Diabetes: Code(s): E11.9 - Type 2 diabetes mellitus without complications Status: Acute Assessment and Plan: Glucose 114 Trend glucose Accu AC/HS ISS Hypoglycemic protocol Adjust therapy as indicated (6) Atrial fibrillation: Qualifiers: Atrial fibrillation type: unspecified Qualified Code(s): I48.91 - Unspecified atrial fibrillation Code(s): I48.91 - Unspecified atrial fibrillation Status: Acute Assessment and Plan: rate controlled No anticoagulation (7) Bacteremia: Code(s): R78.81 - Bacteremia Status: Acute Assessment and Plan: Blood culture grew enterococcus faecalis, staphylococcus haemolytica, and staphylococcus epodermis in the anaerobic bottle only Vancomycin added WBC stable trending down, currently 10.8 Continue to trend Seems to be more of a contaminate Repeat blood cultures show NGTD Adjust sensitivities as indicated (8) Hypotension: Code(s): I95.9 - Hypotension, unspecified Status: Acute Assessment and Plan: BPs are labile, more stable All home blood pressure medications are on hold Continue to trend BP Adjust therapy as indicated Time Spent With Patient Time: about 35 minutes of talking with the patient and his family Time with patient: Greater than 35 minutes Subjective Date/time seen: 05/22/221499 Interval history: 05/22/221499 Patient was resting comfortably in bed. He did arouse very easily. He seemed a lot more talkative today. He denied any kind of pain and his stated that he was using his left hand. I was able to sit him on the side of the bed. Patient does have a hard time following commands and he is A&O x1. Patient seems to be at his baseline. A complete review of systems unable to be obtained due to patient's mental status I did have a very long talk about the patient to the family. It seems as if the worked with physical therapy however they had to work with him with a [employer] lift. Will go in in the morning and try to work with patient and get him
[2022-05-22] MEDS: LOVASTATIN 20 MG TABLET PO (17:37)
[2022-05-22] MEDS: ASPIRIN 81 MG ENTERIC TABLET PO (21:25)
[2022-05-22] MEDS: LORATADINE 10 MG TABLET PO (21:25)
[2022-05-23 05:16] LABS: Basophils Absolute Auto 0.1 K/mm3 (0.0-0.1); Basophils Percent Auto 1.3 % (0.2-1.2); Eosinophils Absolute Auto 0.9 K/mm3 (0-0.3); Eosinophils Percent Auto 7.8 % (0-4.4); Hemoglobin 15.1 g/dL (14.0-18.0); Immature Granulocyte Absolute 0.05 K/mm3 (0.00-0.031); Immature Granulocyte Percent A 0.5 % (0-0.5); Lymphocytes Absolute Auto 3.49 K/mm3 (0.9-3.2); Lymphocytes Percent Auto 31.6 % (18.3-44.2); Mean Corpuscular HGB Conc 32.8 g/dl (32-36); Mean Corpuscular Hemoglobin 31.3 pg (26-34); Mean Corpuscular Volume 95.4 fl (80-100); Mean Platelet Volume 9.9 fl (7.4-10.4); Monocytes Absolute Auto 0.9 K/mm3 (0.1-0.6); Monocytes Percent Auto 8.1 % (2.6-8.5); Neutrophils Absolute Auto 5.6 K/mm3 (1.3-6.7); Neutrophils Percent Auto 50.7 % (45.5-73.1); Platelet Count Result 215 k/mm3 (150-375); Red Blood Count 4.82 M/mm3 (4.6-6.20); Red Cell Distribution Width 12.7 % (11.5-14.5)
[2022-05-23 05:28] LABS: Alanine Aminotransferase 22 U/L (6-50); Albumin Level 3.6 g/dL (3.5-5.1); Alkaline Phosphatase 87 U/L (38-126); Anion Gap 10 mmol/L (8-16); Aspartate Amino Transferase 31 U/L (17-59); Bilirubin,Total 0.3 mg/dL (0.2-1.3); Blood Urea Nitrogen 17 mg/dL (9-20); Calcium 8.2 mg/dL (8.4-10.2); Carbon Dioxide 28 mmol/L (22-30); Chloride 100 mmol/L (98-107); Estimated CRCL calculation 53 ml/min; Estimated Glomerular Filt Rate > 60; Glucose 121 mg/dL (65-110); Magnesium 2.2 mg/dL (1.6-2.3); Potassium 3.4 mmol/L (3.4-5.0); Sodium 138 mmol/L (137-145)
[2022-05-23 06:57] VITALS: BP 117/62; PULSE 65; RESP 14; TEMP 36.6; O2SAT 94
[2022-05-23] MEDS: PANTOPRAZOLE 40 MG TABLET PO ×2 (08:19→16:33)
[2022-05-23] MEDS: ESCITALOPRAM OXALATE 10 MG TABLET 20 MG PO (08:19)
[2022-05-23] MEDS: ENOXAPARIN 40 MG/0.4 ML SYRINGE SUB-Q (08:20)
[2022-05-23] MEDS: GABAPENTIN 100 MG CAPSULE PO ×3 (08:20→16:33)
--- NOTE | 2022-05-23 09:45 | P.PNIM_ITS ---
Progress Note: A&P Assessment and Plan (1) Pneumonia: Qualifiers: Laterality: bilateral Lung location: lower lobe of lung Pneumonia type: due to unspecified organism Qualified Code(s): J18.9 - Pneumonia, unspecified organism Code(s): J18.9 - Pneumonia, unspecified organism Status: Acute Assessment and Plan: * Chest xray indicated bilateral pulmonary infiltrates, edema vs pna * Blood cultures grew Enterococcus faecalis, Staphylococcus haemolytics, Enterococcus faecalis, probably a contaminate * no notable shortness of breath * Ceftriaxone, Azithromycin, and Vancomycin, continue for now * Supplemental oxygen, wean to maintain saturation >90% * Was able to wean to room air, saturation was 99% * Trend labs * Adjust therapy as indicated (2) Acute metabolic encephalopathy: Code(s): G93.41 - Metabolic encephalopathy Status: Acute Assessment and Plan: * Presented with altered mental status, slurred speech, and weakness * Head CT shows no abnormality * 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 * Could be related to chronic dementia, infection (PNA), or possible stroke * Trend mental status * adjust therapy accordingly * Seems to be resolving (3) Acute hypoxemic respiratory failure: Code(s): J96.01 - Acute respiratory failure with hypoxia Status: Acute Assessment and Plan: * Resolved * supplemental oxygen as needed * wean off as possible (4) Alzheimer's dementia: Code(s): G30.9 - Alzheimer's disease, unspecified; F02.80 - Dementia in other diseases classified elsewhere, unspecified severity, without behavioral disturbance, psychotic disturbance, mood disturbance, and anxiety Status: Acute Assessment and Plan: * end stage * A&O x 1 * Baseline according to the ED is A&O x1 * 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 (5) Diabetes: Code(s): E11.9 - Type 2 diabetes mellitus without complications Status: Acute Assessment and Plan: * Glucose 121 * Trend glucose * Accu AC/HS * ISS * Hypoglycemic protocol * Adjust therapy as indicated (6) Atrial fibrillation: Qualifiers: Atrial fibrillation type: unspecified Qualified Code(s): I48.91 - Unspecified atrial fibrillation Code(s): I48.91 - Unspecified atrial fibrillation Status: Acute Assessment and Plan: * rate controlled * No anticoagulation (7) Bacteremia: Code(s): R78.81 - Bacteremia Status: Acute Assessment and Plan: * Blood culture grew enterococcus faecalis, staphylococcus haemolytica, and staphylococcus epodermis in the anaerobic bottle only * Vancomycin added * WBC stable trending down, currently 11.0 * Continue to trend * Seems to be more of a contaminate * Repeat blood cultures show NGTD * Adjust sensitivities as indicated (8) Hypotension: Code(s): I95.9 - Hypotension, unspecified Status: Acute Assessment and Plan: * BPs are labile, more stable * BP 117/62 * All home blood pressure medications are on hold * Continue to trend BP * Adjust therapy as indicated Time Spent With Patient Time with patient: Greater than 35 minutes Subjective Date/time seen: 05/23/22 6415 Interval history:
--- NOTE | 2022-05-23 09:45 | PM.IMPN ---
Progress Note: A&P Assessment and Plan (1) Pneumonia: Qualifiers: Laterality: bilateral Lung location: lower lobe of lung Pneumonia type: due to unspecified organism Qualified Code(s): J18.9 - Pneumonia, unspecified organism Code(s): J18.9 - Pneumonia, unspecified organism Status: Acute Assessment and Plan: Chest xray indicated bilateral pulmonary infiltrates, edema vs pna Blood cultures grew Enterococcus faecalis, Staphylococcus haemolytics, Enterococcus faecalis, probably a contaminate no notable shortness of breath Ceftriaxone, Azithromycin, and Vancomycin, continue for now Supplemental oxygen, wean to maintain saturation >90% Was able to wean to room air, saturation was 99% Trend labs Adjust therapy as indicated (2) Acute metabolic encephalopathy: Code(s): G93.41 - Metabolic encephalopathy Status: Acute Assessment and Plan: Presented with altered mental status, slurred speech, and weakness Head CT shows no abnormality 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 Could be related to chronic dementia, infection (PNA), or possible stroke Trend mental status adjust therapy accordingly Seems to be resolving (3) Acute hypoxemic respiratory failure: Code(s): J96.01 - Acute respiratory failure with hypoxia Status: Acute Assessment and Plan: Resolved supplemental oxygen as needed wean off as possible (4) Alzheimer's dementia: Code(s): G30.9 - Alzheimer's disease, unspecified; F02.80 - Dementia in other diseases classified elsewhere, unspecified severity, without behavioral disturbance, psychotic disturbance, mood disturbance, and anxiety Status: Acute Assessment and Plan: end stage A&O x 1 Baseline according to the ED is A&O x1 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 (5) Diabetes: Code(s): E11.9 - Type 2 diabetes mellitus without complications Status: Acute Assessment and Plan: Glucose 121 Trend glucose Accu AC/HS ISS Hypoglycemic protocol Adjust therapy as indicated (6) Atrial fibrillation: Qualifiers: Atrial fibrillation type: unspecified Qualified Code(s): I48.91 - Unspecified atrial fibrillation Code(s): I48.91 - Unspecified atrial fibrillation Status: Acute Assessment and Plan: rate controlled No anticoagulation (7) Bacteremia: Code(s): R78.81 - Bacteremia Status: Acute Assessment and Plan: Blood culture grew enterococcus faecalis, staphylococcus haemolytica, and staphylococcus epodermis in the anaerobic bottle only Vancomycin added WBC stable trending down, currently 11.0 Continue to trend Seems to be more of a contaminate Repeat blood cultures show NGTD Adjust sensitivities as indicated (8) Hypotension: Code(s): I95.9 - Hypotension, unspecified Status: Acute Assessment and Plan: BPs are labile, more stable BP 117/62 All home blood pressure medications are on hold Continue to trend BP Adjust therapy as indicated Time Spent With Patient Time with patient: Greater than 35 minutes Subjective Date/time seen: 05/23/22944 Interval history: 05/23/22944 Patient was lying in bed kind a crooked. His adjust help to me. I was able to stand him up and get him up to the chair with moderate assistance. He was able to walk and I did help him walk with physical therapy as well. He denies any chest pain, shortness a breath, nausea, vomiting, diarrhea, constipation, weakness or fatigue. He did not do too bad and he can stand on his own. has been updated. 05/22/22 1500 Patient was resting comfortably in bed. He did arouse very easily. He seemed a lot more talkative today. He denied any kind of pain and his stated that he was using his left hand. I was able to sit him on t
[2022-05-23 16:08] VITALS: BP 108/68; PULSE 67; RESP 16; TEMP 36.2; O2SAT 95
[2022-05-23] MEDS: LOVASTATIN 20 MG TABLET PO (18:02)
[2022-05-23 20:04] VITALS: BP 104/69; PULSE 75; RESP 16; TEMP 36.5; O2SAT 97
[2022-05-23] MEDS: ASPIRIN 81 MG ENTERIC TABLET PO (20:30)
[2022-05-23] MEDS: traZODone HCL 50 MG TABLET PO (20:30)
[2022-05-24 03:28] LABS: Alanine Aminotransferase 21 U/L (6-50); Albumin Level 3.2 g/dL (3.5-5.1); Alkaline Phosphatase 91 U/L (38-126); Anion Gap 8 mmol/L (8-16); Aspartate Amino Transferase 25 U/L (17-59); Bilirubin,Total 0.1 mg/dL (0.2-1.3); Blood Urea Nitrogen 19 mg/dL (9-20); Calcium 8.3 mg/dL (8.4-10.2); Carbon Dioxide 28 mmol/L (22-30); Chloride 102 mmol/L (98-107); Estimated CRCL calculation 53 ml/min; Estimated Glomerular Filt Rate > 60; Glucose 137 mg/dL (65-110); Magnesium 2.1 mg/dL (1.6-2.3); Potassium 3.6 mmol/L (3.4-5.0); Sodium 138 mmol/L (137-145)
[2022-05-24 03:49] LABS: Basophils Absolute Auto 0.1 K/mm3 (0.0-0.1); Eosinophils Absolute Auto 0.9 K/mm3 (0-0.3); Eosinophils Percent Auto 7.9 % (0-4.4); Hematocrit 44.6 % (42.0-52.0); Hemoglobin 14.7 g/dL (14.0-18.0); Immature Granulocyte Absolute 0.03 K/mm3 (0.00-0.031); Immature Granulocyte Percent A 0.3 % (0-0.5); Lymphocytes Percent Auto 26.7 % (18.3-44.2); Mean Corpuscular Volume 97.2 fl (80-100); Mean Platelet Volume 10.3 fl (7.4-10.4); Monocytes Absolute Auto 1.2 K/mm3 (0.1-0.6); Monocytes Percent Auto 10.2 % (2.6-8.5); Neutrophils Percent Auto 53.9 % (45.5-73.1); Platelet Count Result 227 k/mm3 (150-375); Red Blood Count 4.59 M/mm3 (4.6-6.20); White Blood Count 11.2 K/mm3 (4.5-10.0)
[2022-05-24 03:53] LABS: Vancomycin Trough 10.2 ug/mL (10.0-20.0)
[2022-05-24 06:51] VITALS: BP 115/75; PULSE 65; RESP 18; TEMP 36.6; O2SAT 94
[2022-05-24] MEDS: GABAPENTIN 100 MG CAPSULE PO ×3 (09:19→17:22)
[2022-05-24] MEDS: ENOXAPARIN 40 MG/0.4 ML SYRINGE SUB-Q (09:19)
[2022-05-24] MEDS: ESCITALOPRAM OXALATE 10 MG TABLET 20 MG PO (09:19)
--- NOTE | 2022-05-24 10:30 | PM.IMPN ---
Progress Note: A&P Assessment and Plan (1) Pneumonia: Qualifiers: Laterality: bilateral Lung location: lower lobe of lung Pneumonia type: due to unspecified organism Qualified Code(s): J18.9 - Pneumonia, unspecified organism Code(s): J18.9 - Pneumonia, unspecified organism Status: Acute Assessment and Plan: Chest xray indicated bilateral pulmonary infiltrates, edema vs pna Blood cultures grew Enterococcus faecalis, Staphylococcus haemolytics, Enterococcus faecalis, probably a contaminate no notable shortness of breath Ceftriaxone, Azithromycin, and Vancomycin, Stop Vanc and Azithro, switch to cefdinir for another 4 days Supplemental oxygen, wean to maintain saturation >90% Was able to wean to room air, saturation was 99% Trend labs Adjust therapy as indicated WBC stable at 11.2 (2) Acute metabolic encephalopathy: Code(s): G93.41 - Metabolic encephalopathy Status: Acute Assessment and Plan: Presented with altered mental status, slurred speech, and weakness Head CT shows no abnormality 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 Could be related to chronic dementia, infection (PNA), or possible stroke Trend mental status adjust therapy accordingly Seems to be resolving (3) Acute hypoxemic respiratory failure: Code(s): J96.01 - Acute respiratory failure with hypoxia Status: Acute Assessment and Plan: Resolved supplemental oxygen as needed wean off as possible (4) Alzheimer's dementia: Code(s): G30.9 - Alzheimer's disease, unspecified; F02.80 - Dementia in other diseases classified elsewhere, unspecified severity, without behavioral disturbance, psychotic disturbance, mood disturbance, and anxiety Status: Acute Assessment and Plan: end stage A&O x 1 Baseline according to the ED is A&O x1 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 Probably at baseline (5) Diabetes: Code(s): E11.9 - Type 2 diabetes mellitus without complications Status: Acute Assessment and Plan: Glucose 137 Trend glucose Accu AC/HS stopped Hypoglycemic protocol Adjust therapy as indicated Stable at this time (6) Atrial fibrillation: Qualifiers: Atrial fibrillation type: unspecified Qualified Code(s): I48.91 - Unspecified atrial fibrillation Code(s): I48.91 - Unspecified atrial fibrillation Status: Acute Assessment and Plan: rate controlled No anticoagulation (7) Bacteremia: Code(s): R78.81 - Bacteremia Status: Acute Assessment and Plan: Blood culture grew enterococcus faecalis, staphylococcus haemolytica, and staphylococcus epodermis in the anaerobic bottle only WBC stable currently 11.2 Continue to trend Seems to be more of a contaminate Repeat blood cultures show NGTD Adjust sensitivities as indicated (8) Hypotension: Code(s): I95.9 - Hypotension, unspecified Status: Acute Assessment and Plan: BPs are labile, more stable BP 115/75 All home blood pressure medications remain on hold Continue to trend BP Adjust therapy as indicated Plan Should probably not restart blood pressure medication at discharge Time Spent With Patient Time with patient: Greater than 35 minutes Subjective Date/time seen: 05/24/221029 Interval history: 05/24/221029 Patient was sleeping when I went into the room. His was present. She stated that she feels that he is back to his baseline. We are awaiting two additional facilities for possible rehab. If not she would like [facility] home health. She is also stating that she feels that he is eating well. He denies any current complaints and appears comfortable. Antibiotics have been adjusted to PO after todays dose. Complete review of systems is unable to be performed due to patients mental statu
--- NOTE | 2022-05-24 10:30 | P.PNIM_ITS ---
Progress Note: A&P Assessment and Plan (1) Pneumonia: Qualifiers: Laterality: bilateral Lung location: lower lobe of lung Pneumonia type: due to unspecified organism Qualified Code(s): J18.9 - Pneumonia, unspecified organism Code(s): J18.9 - Pneumonia, unspecified organism Status: Acute Assessment and Plan: * Chest xray indicated bilateral pulmonary infiltrates, edema vs pna * Blood cultures grew Enterococcus faecalis, Staphylococcus haemolytics, Enterococcus faecalis, probably a contaminate * no notable shortness of breath * Ceftriaxone, Azithromycin, and Vancomycin, Stop Vanc and Azithro, switch to cefdinir for another 4 days * Supplemental oxygen, wean to maintain saturation >90% * Was able to wean to room air, saturation was 99% * Trend labs * Adjust therapy as indicated * WBC stable at 11.2 (2) Acute metabolic encephalopathy: Code(s): G93.41 - Metabolic encephalopathy Status: Acute Assessment and Plan: * Presented with altered mental status, slurred speech, and weakness * Head CT shows no abnormality * 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 * Could be related to chronic dementia, infection (PNA), or possible stroke * Trend mental status * adjust therapy accordingly * Seems to be resolving (3) Acute hypoxemic respiratory failure: Code(s): J96.01 - Acute respiratory failure with hypoxia Status: Acute Assessment and Plan: * Resolved * supplemental oxygen as needed * wean off as possible (4) Alzheimer's dementia: Code(s): G30.9 - Alzheimer's disease, unspecified; F02.80 - Dementia in other diseases classified elsewhere, unspecified severity, without behavioral disturbance, psychotic disturbance, mood disturbance, and anxiety Status: Acute Assessment and Plan: * end stage * A&O x 1 * Baseline according to the ED is A&O x1 * 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 * Probably at baseline (5) Diabetes: Code(s): E11.9 - Type 2 diabetes mellitus without complications Status: Acute Assessment and Plan: * Glucose 137 * Trend glucose * Accu AC/HS stopped * Hypoglycemic protocol * Adjust therapy as indicated * Stable at this time (6) Atrial fibrillation: Qualifiers: Atrial fibrillation type: unspecified Qualified Code(s): I48.91 - Unspecified atrial fibrillation Code(s): I48.91 - Unspecified atrial fibrillation Status: Acute Assessment and Plan: * rate controlled * No anticoagulation (7) Bacteremia: Code(s): R78.81 - Bacteremia Status: Acute Assessment and Plan: * Blood culture grew enterococcus faecalis, staphylococcus haemolytica, and staphylococcus epodermis in the anaerobic bottle only * WBC stable currently 11.2 * Continue to trend * Seems to be more of a contaminate * Repeat blood cultures show NGTD * Adjust sensitivities as indicated (8) Hypotension: Code(s): I95.9 - Hypotension, unspecified Status: Acute Assessment and Plan: * BPs are labile, more stable * BP 115/75 * All home blood pressure medications remain on hold * Continue to trend BP * Adjust therapy as indicated Plan Should probably not restart blood pressure medicatio
[2022-05-24 14:00] VITALS: BP 108/78; PULSE 69; RESP 18; TEMP 36.4; O2SAT 94
[2022-05-24] MEDS: LOVASTATIN 20 MG TABLET PO (17:22)
[2022-05-24] MEDS: PANTOPRAZOLE 40 MG TABLET PO (17:29)
[2022-05-24] MEDS: ASPIRIN 81 MG ENTERIC TABLET PO (21:36)
[2022-05-24 22:00] VITALS: BP 103/60; PULSE 67; RESP 14; TEMP 36.8; O2SAT 96
[2022-05-24] MEDS: MELATONIN 5 MG TABLET PO (23:35)
[2022-05-25 05:28] LABS: Basophils Absolute Auto 0.1 K/mm3 (0.0-0.1); Basophils Percent Auto 0.9 % (0.2-1.2); Eosinophils Absolute Auto 0.9 K/mm3 (0-0.3); Eosinophils Percent Auto 7.4 % (0-4.4); Hematocrit 44.2 % (42.0-52.0); Hemoglobin 14.5 g/dL (14.0-18.0); Immature Granulocyte Absolute 0.05 K/mm3 (0.00-0.031); Immature Granulocyte Percent A 0.4 % (0-0.5); Lymphocytes Absolute Auto 3.31 K/mm3 (0.9-3.2); Lymphocytes Percent Auto 28.3 % (18.3-44.2); Mean Corpuscular HGB Conc 32.8 g/dl (32-36); Mean Corpuscular Hemoglobin 31.7 pg (26-34); Mean Corpuscular Volume 96.5 fl (80-100); Mean Platelet Volume 9.9 fl (7.4-10.4); Monocytes Absolute Auto 1.1 K/mm3 (0.1-0.6); Monocytes Percent Auto 9.5 % (2.6-8.5); Neutrophils Absolute Auto 6.3 K/mm3 (1.3-6.7); Neutrophils Percent Auto 53.5 % (45.5-73.1); Platelet Count Result 218 k/mm3 (150-375); Red Blood Count 4.58 M/mm3 (4.6-6.20); Red Cell Distribution Width 12.8 % (11.5-14.5); White Blood Count 11.7 K/mm3 (4.5-10.0)
[2022-05-25 05:38] LABS: Alanine Aminotransferase 23 U/L (6-50); Albumin Level 3.4 g/dL (3.5-5.1); Alkaline Phosphatase 99 U/L (38-126); Anion Gap 10 mmol/L (8-16); Aspartate Amino Transferase 32 U/L (17-59); Bilirubin,Total 0.3 mg/dL (0.2-1.3); Blood Urea Nitrogen 18 mg/dL (9-20); Calcium 8.1 mg/dL (8.4-10.2); Carbon Dioxide 28 mmol/L (22-30); Chloride 99 mmol/L (98-107); Estimated CRCL calculation 59 ml/min; Estimated Glomerular Filt Rate > 60; Glucose 145 mg/dL (65-110); Potassium 3.6 mmol/L (3.4-5.0); Sodium 137 mmol/L (137-145)
[2022-05-25 06:55] VITALS: BP 117/69; PULSE 58; RESP 16; TEMP 36.5; O2SAT 93
[2022-05-25] MEDS: CEFDINIR 300 MG CAPSULE PO (09:29)
[2022-05-25] MEDS: ESCITALOPRAM OXALATE 10 MG TABLET 20 MG PO (09:30)
[2022-05-25] MEDS: ENOXAPARIN 40 MG/0.4 ML SYRINGE SUB-Q (09:30)
[2022-05-25] MEDS: GABAPENTIN 100 MG CAPSULE PO ×2 (09:31→12:35)
--- NOTE | 2022-05-25 10:24 | PCPTNOTE ---
Attempted to see patient for PT, however patient was eating breakfast and patient's asked PT to come back.
[2022-05-25 13:13] LABS: EDCOVIDSCREEN Negative (Negative)
--- NOTE | 2022-05-25 13:27 | PM.DS ---
DS: Admitting Diagnosis Discharge Date 05/25/2022 Admitting Diagnosis Pneumonia DS: Discharge Diagnosis Discharge Diagnosis (1) Pneumonia: Qualifiers: Laterality: bilateral Lung location: lower lobe of lung Pneumonia type: due to unspecified organism Qualified Code(s): J18.9 - Pneumonia, unspecified organism Code(s): J18.9 - Pneumonia, unspecified organism Status: Acute Assessment and Plan: CXR on presentation showed bilateral pulmonary infiltrates. Patient received IV ceftriaxone, azithromycin and vancomycin. He was transitioned to p.o. cefdinir and azithromycin. He will continue PO cefdinir as an outpatient to complete 7 days. Respiratory status improved. Supportive care provided. (2) Bacteremia: Code(s): R78.81 - Bacteremia Status: Ruled-out Assessment and Plan: Ruled out. Blood culture with staph epidermis in one bottle, and enterorococcus and staph haemolyticus in second bottle. [place] to be contaminant. Repeat blood cultures collected on 05/22 which were negative. (3) Acute metabolic encephalopathy: Code(s): G93.41 - Metabolic encephalopathy Status: Acute Assessment and Plan: Presented with increased confusion, only oriented to self per his . Head CT showed no acute findings. Brain MRI showed old infarct in right occipital lobe in right frontoparietal region. Patient does have history of dementia hand symptoms likely related to progression of dementia. No acute changes. (4) Acute hypoxemic respiratory failure: Code(s): J96.01 - Acute respiratory failure with hypoxia Status: Acute Assessment and Plan: Patient was hypoxic on presentation at 80%. He required up to 4 L supplemental O2 but was slowly able to be weaned to room air and maintain adequate O2 sats on for 5 days during admission. O2 sats to be monitored at nursing facility with supplemental oxygen as needed (5) Alzheimer's dementia: Code(s): G30.9 - Alzheimer's disease, unspecified; F02.80 - Dementia in other diseases classified elsewhere, unspecified severity, without behavioral disturbance, psychotic disturbance, mood disturbance, and anxiety Status: Acute Assessment and Plan: At baseline (6) Diabetes: Code(s): E11.9 - Type 2 diabetes mellitus without complications Status: Acute Assessment and Plan: Blood sugars well controlled during admission. Continue alogliptin. Implement hypoglycemic protocol at nursing facility (7) Atrial fibrillation: Qualifiers: Atrial fibrillation type: unspecified Qualified Code(s): I48.91 - Unspecified atrial fibrillation Code(s): I48.91 - Unspecified atrial fibrillation Status: Acute Assessment and Plan: Rate controlled. Patient is not on systemic anticoagulation, likely due to advanced age and fall risk. Metoprolol succinate was held due to episodes of hypotension and intermittent bradycardia. (8) Hypotension: Code(s): I95.9 - Hypotension, unspecified Status: Acute Assessment and Plan: Blood pressures reviewed and were soft during admission in the 90s-100 systolic. Metoprolol succinate and olmesartan held. Continue to monitor BP at nursing facility DS: Summary Hospital Course Hospital Course: date of admission: 05/19/2022 date of discharge: 05/25/2022 Richard Davis is an 81-year-old male with a history of dementia, depression, anxiety, bipolar disorder, diabetes, CAD, hypertension who presented to the emergency department on 05/19/2022 from home for evaluation of increased confusion her his . She was concerned that he was not acting in his usual manner and was more sleepy. On presentation to the ED, he was afebrile, noted to be hypoxic in the 80s and placed on 2 L supplemental O2, additional vital signs stable WBC 11.0, UA unremarkable, troponin negative, COVID and influenza negative, CXR showed bilateral in
== END 2022-05-25 14:05 | DRG 193 ==
LOC: ANHED 18:58 → ANH2MED 05-20 00:04
PROVIDERS: Nurse Practitioner; Physician Assistant; Admitting Provider Internal Medicine; Emergency Provider Emergency Medicine; PCP Family Medicine; Visit Provider Internal Medicine
DX: J18.9 Pneumonia, unspecified organism (principal); G93.41 Metabolic encephalopathy; J96.01 Acute respiratory failure with hypoxia; B95.2 Enterococcus as the cause of diseases classified elsewhere; Z20.822 Contact with and (suspected) exposure to COVID-19; E11.9 Type 2 diabetes mellitus without complications; E86.0 Dehydration; F41.9 Anxiety disorder, unspecified; F31.9 Bipolar disorder, unspecified; G30.9 Alzheimer's disease, unspecified; F02.80 Dementia in other diseases classified elsewhere, unspecified severity, without behavioral disturbance, psychotic disturbance, mood disturbance, and anxiety; I25.10 Atherosclerotic heart disease of native coronary artery without angina pectoris; I95.9 Hypotension, unspecified; I10 Essential (primary) hypertension; I48.91 Unspecified atrial fibrillation; R47.81 Slurred speech; Z86.73 Personal history of transient ischemic attack (TIA), and cerebral infarction without residual deficits; Z79.82 Long term (current) use of aspirin; Z88.0 Allergy status to penicillin; Z87.891 Personal history of nicotine dependence
CPT/HCPCS: 36415; 51701; 70450; 70551; 71045; 80053; 80202; 81001; 82565; 82948; 83690; 83735; 83880; 84484; 85025; 85610; 85730; 87040; 87147; 87181; 87186; 87426; 87502; 92610; 93005; 93306; 96361; 96365; 96367; 96372; 97110; 97161; 97165; 97530; 99285; A9270; C9803; G0378; J0456; J0696; J1610; J1630; J1650; J1940; J3370; J7040; U0003; U0005

== ENCOUNTER 2022-06-09 19:05 | Inpatient (IN) | payer OTHER, SELFPAY ==
[2022-06-09] VITALS (22 sets, daily range): BP systolic 91–120; BP diastolic 51–67; PULSE 60–72; RESP 2–19; TEMP 36.4–36.5; O2SAT 91–98; BMI 27.8; BMI 29.8
--- NOTE | ~2022-06-09 | XR_ITS ---
XR chest 1V portable DATE: 06/09/2022 19:55 INDICATION: Weakness TECHNIQUE: Portable AP chest on 06/09/2022 at 1950 hours COMPARISON: 05/19/2022 portable AP chest FINDINGS: Status post sternotomy. There is patchy infiltrate and/or atelectasis in the left lower zoe ng. The lungs otherwise appear clear. No pulmonary vascular congestion or pleural effusion or pneum othorax. IMPRESSION: Patchy left lower lobe infiltrate and/or atelectasis Reviewed, dictated and finalized at location A.
--- NOTE | ~2022-06-09 | CT_ITS ---
EXAMINATION: CT brain wo con DATE: 06/09/2022 19:47 INDICATION: Mental status change TECHNIQUE: Computed tomography (CT) of the head was performed without intravenous contrast. The mA wa s adjusted according to patient size. Iterative reconstruction technique was employed. Exam dose: 10 59.33 mGy-cm total exam DLP. COMPARISON: 05/20/2022 MR brain 05/19/2022 CT brain FINDINGS: There is a small chronic infarct high over the right parietal convexity. There is nonspecif ic diminished attenuation of the cerebral white matter, likely due to chronic small vessel ischemic c hanges. Small chronic lacunar infarct of the head of the left caudate nucleus. Bilateral carotid siphon internal carotid artery calcifications. There is nonspecific diminished atte nuation of the cerebral white matter, likely due to chronic small vessel ischemic changes. No intracranial mass lesion or hemorrhage, midline shift or mass effect. There is prominent central and cortical cerebral atrophy. No subdural or epidural hematoma. No fracture or bone destruction of the cranial vault. Mastoid air cells and included paranasal sinuses are normally developed and aerated. No fracture or b one destruction of the cranial vault. 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 Reviewed, dictated and finalized at location A.
--- NOTE | ~2022-06-09 | XR_ITS ---
EXAMINATION: XR chest 1V portable DATE: 06/21/2022 08:26 INDICATION: Hypoxia TECHNIQUE: frontal view of the chest was obtained. COMPARISON: Chest radiograph dated 06/20/2022 FINDINGS: Increasing opacities in the bilateral mid and lower lung zones. Hazy opacities at the bilateral lower lung zones with blunting at the right costophrenic angle suggesting small bilateral posterior layeri ng pleural effusions. No pneumothorax. The cardiomediastinal silhouette is within normal limits for A P technique Median sternotomy wires and mediastinal surgical clips are seen, likely from prior goodwin ry artery bypass grafting. IMPRESSION: 1. Increasing opacities in the lateral mid and lower lung zones consistent with pulmonary edema, pneu monia, atelectasis, small pleural effusions or some combination thereof. Reviewed, dictated and finalized at location A. R CASHIER IMPRESSION: 1. Increasing opacities in the lateral mid and lower lung zones consistent with pulmonary edema, pneumonia, atelectasis, small pleural effusions or some combi nation thereof.
--- NOTE | ~2022-06-09 | XR_ITS ---
EXAMINATION: XR chest 1V portable INDICATION: Shortness of breath and cough TECHNIQUE: Portable AP chest at 1332 hours COMPARISON: 06/09/2022 FINDINGS: Patchy opacities persist throughout the left lung with slight interval worsening. Minimal a irspace opacities have developed in the right lung base. No pleural effusion or pneumothorax. The car diomediastinal silhouette is stable. Median sternotomy wires and mediastinal surgical clips are seen, likely from prior coronary artery bypass grafting. IMPRESSION: 1. Patchy opacities of the left lung and developing opacities of the right lung base, consistent with atelectasis versus pneumonia. Reviewed, dictated and finalized at location B. E CASHIER
--- NOTE | 2022-06-09 19:27 | ECG_ITS ---
Measurements Intervals [place] Rate: 67 P: 268 NC: 250 QRS: 76 QRSD: 105 T: 19 QT: 479 QTc: 508 Interpretive Statements ATRIAL FLUTTER INFERIOR MYOCARDIAL INFARCTION, OF INDETERMINATE AGE MODERATE T-WAVE ABNORMALITY, CONSIDER ANTEROLATERAL ISCHEMIA ABNORMAL ECG COMPARED TO ECG 05/20/2022 06:43:43 NO SIGNIFICANT CHANGE Electronically Signed On 06-10-2022 16:36:40 CDT by Benjamin Cordova M.D.
[2022-06-09] MEDS: SODIUM CHLORIDE 0.9% IV 1,000 ML 999 ML IV CONT (20:25)
[2022-06-09 20:33] LABS: Basophils Absolute Auto 0.1 K/mm3 (0.0-0.1); Basophils Percent Auto 0.9 % (0.2-1.2); Eosinophils Absolute Auto 0.5 K/mm3 (0-0.3); Eosinophils Percent Auto 4.2 % (0-4.4); Hemoglobin 16.3 g/dL (14.0-18.0); Immature Granulocyte Absolute 0.03 K/mm3 (0.00-0.031); Immature Granulocyte Percent A 0.3 % (0-0.5); Lymphocytes Absolute Auto 2.24 K/mm3 (0.9-3.2); Lymphocytes Percent Auto 19.1 % (18.3-44.2); Mean Corpuscular Volume 100.2 fl (80-100); Mean Platelet Volume 9.7 fl (7.4-10.4); Monocytes Percent Auto 8.7 % (2.6-8.5); Neutrophils Absolute Auto 7.8 K/mm3 (1.3-6.7); Neutrophils Percent Auto 66.8 % (45.5-73.1); Platelet Count Result 284 k/mm3 (150-375); Red Blood Count 5.09 M/mm3 (4.6-6.20); Red Cell Distribution Width 13.5 % (11.5-14.5); White Blood Count 11.7 K/mm3 (4.5-10.0)
[2022-06-09 20:36] LABS: Add Urine Microscopic? YES; Appearance Urine Clear (Clear); Bilirubin Urine Negative (Negative); Blood Urine 1+ (Negative); Color Urine Yellow (Yellow); Glucose Urine UA 3+ mg/dL (Negative); Ketones Urine Trace mg/dL (Negative); Leukocyte Esterase Ur Negative LEU/UL (Negative); Mucus Urine Rare /lpf; Nitrate Urine Negative (Negative); Protein Urine Negative (Negative); RBC Urine 0-2 /hpf (0-2); Squamous Epithelial Cell Urine Rare /hpf (Few); WBC Urine 0-3 /hpf
[2022-06-09 20:38] LABS: Specific Grav Ur 1.031 (1.001-1.035)
[2022-06-09 20:42] LABS: INR 1.2; Lactic Acid Reflex 1.1 mmol/L (0.7-2.0); Prothrombin Time 14.3 Seconds (11.1-14.7)
[2022-06-09 20:43] LABS: Partial Thromboplastin Time 27.7 SECONDS (22.3-36.8)
[2022-06-09 20:50] LABS: Alanine Aminotransferase 14 U/L (6-50); Albumin Level 3.9 g/dL (3.5-5.1); Alkaline Phosphatase 83 U/L (38-126); Anion Gap 12 mmol/L (8-16); Aspartate Amino Transferase 23 U/L (17-59); Bilirubin,Total 0.8 mg/dL (0.2-1.3); Blood Urea Nitrogen 21 mg/dL (9-20); Calcium 8.4 mg/dL (8.4-10.2); Carbon Dioxide 27 mmol/L (22-30); Chloride 107 mmol/L (98-107); Estimated CRCL calculation 57 ml/min; Estimated Glomerular Filt Rate > 60; Glucose 141 mg/dL (65-110); Magnesium 2.2 mg/dL (1.6-2.3); Potassium 3.6 mmol/L (3.4-5.0); Sodium 146 mmol/L (137-145)
--- NOTE | 2022-06-09 20:52 | ED.GENADULT ---
HPI - General Adult General Chief complaint: Weakness Stated complaint: altered/weakness Time Seen by Provider: 06/09/22 19:15 History of Present Illness HPI narrative: Patient is 81-year-old presents emergency department with chief complaint of generalized weakness. The patient was recently in the hospital for and was discharged to a rehab facility and the family took him out of it after he was not having optimal experience. The patient's been at home for several days and the family is reaching a point that they are having difficulty caring for him and then noticed that he has become weaker than. Related Data Home Medications Medication Instructions Recorded Confirmed alogliptin 12.5 mg tablet 12.5 mg PO DAILY 07/01/19 05/20/22 aspirin 81 mg tablet,delayed 81 mg PO HS 07/01/19 05/20/22 release cholecalciferol (vitamin D3) 25 1,000 unit PO DAILY 07/01/19 05/20/22 mcg (1,000 unit) capsule (Vitamin D3) fluticasone propionate 50 1 spray intranasal DAILY PRN Runny 07/01/19 05/20/22 mcg/actuation nasal Nose spray,suspension (Flonase Allergy Relief) lovastatin 40 mg tablet 20 mg PO QPM 07/01/19 05/20/22 metoprolol succinate 25 mg 12.5 mg PO DAILY 07/01/19 05/20/22 tablet,extended release 24 hr olmesartan 20 mg tablet 30 mg PO DAILY 07/01/19 05/20/22 omeprazole 40 mg capsule,delayed 40 mg PO DAILY 07/01/19 05/20/22 release trazodone 50 mg tablet 50 mg PO HS PRN Insomnia 07/01/19 05/20/22 vitamin B complex (B 1 tablet PO DAILY 07/01/19 05/20/22 Complex-Vitamin B12 tablet) cetirizine 10 mg PO HS 05/20/22 05/20/22 escitalopram oxalate 20 mg tablet 20 mg PO DAILY 05/20/22 05/20/22 Allergies Allergy/AdvReac Type Severity Reaction Status Date / Time Penicillins Allergy Severe Hives Verified 06/09/22 19:36 morphine AdvReac Hallucinati Verified 06/09/22 19:36 ng Review of Systems Review of Systems: A 10 system review of systems was completed on the patient and is negative except for what is stated in the HPI. Nursing and ancillary documentation was reviewed. PMFSH Past Medical History Medical History Anxiety Bipolar disorder Depression Diabetes History of dementia Surgical History Surgical History History of open heart surgery Family History Family History Mother Diabetes mellitus Hypertension Father No problems noted. Sibling Hypertension Social History Social History Years smoked: 10 Smoking status: Former smoker Tobacco type: cigarettes Second hand tobacco smoke exposure: No Smoking end date: 12/12/98 Alcohol intake: unknown Drinks per week: 1 Substance use: unknown Substance use type: marijuana Other substance usage details: medical marijuana RS oil Last use: 06/30/19 Gender identity (if verbalized by the patient): Male Spiritual care concerns: No Agree to blood products: Yes Exam Narrative: GENERAL: Well-appearing, well-nourished, and in no acute distress. HEAD: Normocephalic, atraumatic. EYES: PERRLA and EOMI. ENT: Nares clear, no rhinorrhea or epistaxis. Mucous membranes moist. NECK: Supple. CHEST: Clear to auscultation. No respiratory distress. HEART: Regular rate and rhythm. No murmur heard. Normal peripheral pulses. ABDOMEN: Soft, nontender, nondistended, normal active bowel sounds. EXTREMITIES: Normal range of motion. No edema. SKIN: Warm, dry, no rash. NEURO: No focal deficits. Alert to baseline. PSYCH: Normal mood and affect. Course Vital Signs Vital signs: Vital Signs Temperature 36.5 C 06/09/22 19:31 Pulse Rate 68 06/09/22 19:31 Respiratory Rate 18 06/09/22 19:31 Blood Pressure 106/57 L 06/09/22 19:31 Pulse Oximetry 96 06/09/22 19:31 Oxygen Delivery
[2022-06-09 21:00] LABS: Troponin I < 0.012 ng/mL (0.000-0.034)
[2022-06-09 21:10] LABS: Influenza A QL RT-PCR Negative (Negative); Influenza B QL RT-PCR Negative (Negative); SARS-CoV-2 RNA PCR Negative
[2022-06-09 21:30] LABS: Procalcitonin 0.1 ng/mL
[2022-06-09] MEDS: AZTREONAM 1 GM in DEXTROSE 5% IN WATER 50 ML 100 ML IVPB (21:30)
[2022-06-09] MEDS: SODIUM CHLORIDE 0.9% IV 1,000 ML 125 ML IV CONT (21:30)
[2022-06-09 22:56] LABS: Troponin I < 0.012 ng/mL (0.000-0.034)
--- NOTE | 2022-06-09 23:29 | ADMGEN ---
This patient, Richard Davis, was admitted to [facility] Surg Room 326-01. Patient/family oriented to hospital policies and general routines including ID bracelet, bed and alarms, visiting hours, pain management, procedures, bathroom and other care routines, personal items, smoking policy, room service/diet, and visiting hours. Information on how to activate the Rapid Response Team has been discussed. Patient/Family are encouraged to report perceived risks to care and to ask questions if they do not understand what they are told or what they should do.
[2022-06-10] VITALS (10 sets, daily range): BP systolic 100–106; BP diastolic 54–66; PULSE 49–135; RESP 14–20; TEMP 36.7–37.1; O2SAT 94–98
--- NOTE | 2022-06-10 00:57 | PM.IMHP ---
H&P: HPI History of Present Illness Date/Time: 06/10/22 00:57 Chief Complaint: generalized weakness Narrative: This is an 81-year-old male with past medical history significant for dementia, patient was just recently discharged from [facility] to rehabilitation center, he was treated for pneumonia. his talking out of the rehabilitation center and brought him back home after not been happy with the care at this facility however patient has had progressive debilitation, weakness. history has been obtained from who is at bedside patient unable to provide any history due to his dementia. He is brought today for further evaluation preliminary workup was significant for chest x-ray was reported as: IMPRESSION: Patchy left lower lobe infiltrate and/or atelectasis a CT of the head was reported as: IMPRESSION:? 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 Sibling Hypertension Social History Social History Years smoked: 10 Smoking status: Former smoker Second hand tobacco smoke exposure: No Alcohol intake: unknown Drinks per week: 1 Substance use: unknown Substance use type: marijuana Other substance usage details: medical marijuana RS oil Last use: 06/30/19 Has the Lack of Transportation Kept You From Medical Appointments or From Getting Medications?: No Within the Past 12 Months, Were You Worried Whether Your Food Would Run Out Before You Got Money to Buy More?: Never True What is Your Housing Situation Today?: I Have Housing Are You Worried That in the Next 2 Months, You May Not Have Your Own Housing to Live In?: No Do You Have Trouble Paying Your Heating Or Electricity Bill?: No Do You Have Trouble Paying For Medicines?: No Are You Currently Unemployed and Looking for Work?: No Highest Level of Education Completed: High School Diploma/GED Do You Have Trouble With Childcare or the Care of a Family Member?: No Gender identity (if verbalized by the patient): Male Spiritual care concerns: No Agree to blood products: Yes Meds Home Medications and Allergies Home Medications Medication Instructions Recorded Confirmed Type alogliptin 12.5 mg tablet 12.5 mg PO DAILY 07/01/19 06/10/22 History aspirin 81 mg tablet,delayed 81 mg PO HS 07/01/19 06/10/22 History release cholecalciferol (vitamin D3) 25 1,000 unit PO DAILY 07/01/19 06/10/22 History mcg (1,000 unit) capsule (Vitamin D3) fluticasone propionate 50 1 spray intranasal DAILY PRN Runny 07/01/19 06/10/22 History mcg/actuation nasal Nose spray,suspension (Flonase Allergy Relief) lovastatin 40 mg tablet 20 mg PO QPM 07/01/19 06/10/22 History metoprolol succinate 25 mg 12.5 mg PO DAILY 07/01/19 06/10/22 History tablet,extended release 24 hr olmesartan 20 mg tablet 30 mg PO DAILY 07/01/19 06/10/22 History omeprazole 40 mg capsule,delayed 40 mg PO DAILY 07/01/19 06/10/22 History release trazodone 50 mg tablet 50 mg PO HS PRN Insomnia 07/01/19 06/10/22 History vitamin B complex (B 1 tablet PO DAILY 07/01/19 06/10/22 History Complex-Vitamin B12 tablet) c
[2022-06-10] MEDS: IPRATROPIUM BR 0.02% INH SOLN 0.5 MG/2.5 ML VIAL INHALATION ×4 (02:56→21:19)
[2022-06-10] MEDS: ALBUTEROL SULFATE NEB 2.5 MG/3 ML INH 5 MG INHALATION ×4 (02:56→21:19)
[2022-06-10] MEDS: AZTREONAM 1 GM in DEXTROSE 5% IN WATER 50 ML 100 ML IVPB ×3 (06:52→21:32)
[2022-06-10] MEDS: VITAMIN B COMPLEX CAPSULE 1 CAP PO (08:43)
[2022-06-10] MEDS: OLMESARTAN MEDOXOMIL 20 MG TABLET PO (08:43)
[2022-06-10] MEDS: LORATADINE 10 MG TABLET PO (08:43)
[2022-06-10] MEDS: MEMANTINE 5 MG TABLET PO ×2 (08:43→16:37)
[2022-06-10] MEDS: PANTOPRAZOLE 40 MG TABLET PO (08:43)
[2022-06-10] MEDS: OLMESARTAN MEDOXOMIL 10 MG TABLET PO (08:44)
[2022-06-10] MEDS: CHOLECALCIFEROL 1,000 UNITS TABLET 1000 UNITS PO (08:44)
[2022-06-10] MEDS: ESCITALOPRAM OXALATE 10 MG TABLET 20 MG PO (08:44)
[2022-06-10] MEDS: METOPROLOL SUCCINATE EXT REL 12.5 MG TABCR PO (08:44)
[2022-06-10] MEDS: SODIUM CHLORIDE 0.9% IV 1,000 ML 125 ML IV CONT ×3 (11:34→21:32)
--- NOTE | 2022-06-10 14:16 | PM.IMPN ---
Progress Note: A&P Assessment and Plan (1) HCAP (healthcare-associated pneumonia): Code(s): J18.9 - Pneumonia, unspecified organism Status: Acute Assessment and Plan: admit to regular medical floor started on aztreonam and vancomycin cultures in progress HPI-Narrative: ?This is an 81-year-old male with past medical history significant for dementia, patient was just recently discharged from [facility] to rehabilitation [place], he was treated for pneumonia. his talking out of the rehabilitation center and brought him back home after not been happy with the care at this facility however patient has had progressive debilitation, weakness. history has been obtained from who is at bedside patient unable to provide any history due to his dementia.? He is brought today for further evaluation preliminary workup was significant for chest x-ray was reported as Patchy left lower lobe infiltrate and/or atelectasis 06/10/2022 interval history: Patient presented with generalized weakness is found to have pneumonia patient is being treated with aztreonam and vancomycin however patient is quite somnolent unable to provide any review of symptom for history, his is present in the room and had a long discussion patient seems to have end-stage dementia and on and off he does not eat, drink fluids or communicate, it has been difficult for patient 's to manage, after the last discharge patient was sent to rehab he did not do very well there and his pulled him out and took home, and apparently it is difficult for her to manage at home too, patient is considering hospice but still not ready for it will continue to monitor and have PT OT evaluate the patient. (2) Generalized weakness: Code(s): R53.1 - Weakness Status: Acute Assessment and Plan: likely secondary to advanced illness and deconditioning (3) Atrial fibrillation: Qualifiers: Atrial fibrillation type: unspecified Qualified Code(s): I48.91 - Unspecified atrial fibrillation Code(s): I48.91 - Unspecified atrial fibrillation Status: Acute Assessment and Plan: continue to monitor (4) Alzheimer's dementia: Code(s): G30.9 - Alzheimer's disease, unspecified; F02.80 - Dementia in other diseases classified elsewhere, unspecified severity, without behavioral disturbance, psychotic disturbance, mood disturbance, and anxiety Status: Acute Assessment and Plan: continue memantine Subjective Date/time seen: 06/10/22 14:16 generalized weakness HPI-Narrative: ?This is an 81-year-old male with past medical history significant for dementia, patient was just recently discharged from [facility] to rehabilitation center, he was treated for pneumonia. his talking out of the rehabilitation center and brought him back home after not been happy with the care at this facility however patient has had progressive debilitation, weakness. history has been obtained from who is at bedside patient unable to provide any history due to his dementia.? He is brought today for further evaluation preliminary workup was significant for chest x-ray was reported as Patchy left lower lobe infiltrate and/or atelectasis 06/10/2022 interval history: Patient presented with generalized weakness is found to have pneumonia patient is being treated with aztreonam and vancomycin however patient is quite somnolent unable to provide any review of symptom for history, his is present in the room and had a long discussion patient seems to have end-stage dementia and on and off he does not eat, drink fluids or communicate, it has been difficult for patient 's to manage, after the last discharge patient was sent to rehab he did not do very well there and his pulled him out and took home, and apparently it is difficult for her to manage at home too, patient is considering hospice but still not ready for it kassandra
[2022-06-10] MEDS: ASPIRIN 81 MG ENTERIC TABLET PO (22:50)
[2022-06-11] VITALS (12 sets, daily range): BP systolic 102–117; BP diastolic 57–63; PULSE 63–79; RESP 16–18; TEMP 36.5–37.1; O2SAT 94–96
[2022-06-11] MEDS: AZTREONAM 1 GM in DEXTROSE 5% IN WATER 50 ML 100 ML IVPB ×3 (05:50→20:54)
[2022-06-11] MEDS: SODIUM CHLORIDE 0.9% IV 1,000 ML 125 ML IV CONT ×3 (05:51→23:13)
--- NOTE | 2022-06-11 07:34 | PCOTNOTE ---
Attempted OT evaluation, patient currently sleeping soundly. Will follow and attempt at later time.
[2022-06-11] MEDS: CHOLECALCIFEROL 1,000 UNITS TABLET 1000 UNITS PO (08:07)
[2022-06-11] MEDS: METOPROLOL SUCCINATE EXT REL 12.5 MG TABCR PO (08:07)
[2022-06-11] MEDS: PANTOPRAZOLE 40 MG TABLET PO (08:08)
[2022-06-11] MEDS: LORATADINE 10 MG TABLET PO (08:08)
[2022-06-11] MEDS: OLMESARTAN MEDOXOMIL 10 MG TABLET PO (08:08)
[2022-06-11] MEDS: VITAMIN B COMPLEX CAPSULE 1 CAP PO (08:08)
[2022-06-11] MEDS: OLMESARTAN MEDOXOMIL 20 MG TABLET PO (08:08)
[2022-06-11] MEDS: MEMANTINE 5 MG TABLET PO ×2 (08:08→16:31)
[2022-06-11] MEDS: ESCITALOPRAM OXALATE 10 MG TABLET 20 MG PO (08:08)
[2022-06-11] MEDS: ENOXAPARIN 40 MG/0.4 ML SYRINGE SUB-Q (08:08)
[2022-06-11] MEDS: IPRATROPIUM BR 0.02% INH SOLN 0.5 MG/2.5 ML VIAL INHALATION ×3 (08:26→19:42)
[2022-06-11] MEDS: ALBUTEROL SULFATE NEB 2.5 MG/3 ML INH 5 MG INHALATION ×3 (08:26→19:42)
--- NOTE | 2022-06-11 12:13 | PM.IMPN ---
Progress Note: A&P Assessment and Plan (1) HCAP (healthcare-associated pneumonia): Code(s): J18.9 - Pneumonia, unspecified organism Status: Acute Assessment and Plan: admit to regular medical floor started on aztreonam and vancomycin cultures in progress HPI-Narrative: ?This is an 81-year-old male with past medical history significant for dementia, patient was just recently discharged from [facility] to rehabilitation [place], he was treated for pneumonia. his talking out of the rehabilitation center and brought him back home after not been happy with the care at this facility however patient has had progressive debilitation, weakness. history has been obtained from who is at bedside patient unable to provide any history due to his dementia.? He is brought today for further evaluation preliminary workup was significant for chest x-ray was reported as Patchy left lower lobe infiltrate and/or atelectasis 06/11/2022 interval history: Patient presented with generalized weakness is found to have pneumonia patient blood culture is growing Gram-positive cocci in cluster patient is being treated with aztreonam and vancomycin however patient is quite somnolent unable to provide any review of symptom for history, his is present in the room and had a long discussion patient seems to have end-stage dementia and on and off he does not eat, drink fluids or communicate, it has been difficult for patient 's to manage, after the last discharge patient was sent to rehab he did not do very well there and his pulled him out and took home, and apparently it is difficult for her to manage at home too, patient is considering hospice but still not ready for it will continue to monitor and have PT OT evaluate the patient. (2) Generalized weakness: Code(s): R53.1 - Weakness Status: Acute Assessment and Plan: likely secondary to advanced illness and deconditioning (3) Atrial fibrillation: Qualifiers: Atrial fibrillation type: unspecified Qualified Code(s): I48.91 - Unspecified atrial fibrillation Code(s): I48.91 - Unspecified atrial fibrillation Status: Acute Assessment and Plan: continue to monitor (4) Alzheimer's dementia: Code(s): G30.9 - Alzheimer's disease, unspecified; F02.80 - Dementia in other diseases classified elsewhere, unspecified severity, without behavioral disturbance, psychotic disturbance, mood disturbance, and anxiety Status: Acute Assessment and Plan: continue memantine Subjective Date/time seen: 06/11/22 12:13 HPI-Narrative: ?This is an 81-year-old male with past medical history significant for dementia, patient was just recently discharged from [facility] to rehabilitation [place], he was treated for pneumonia. his talking out of the rehabilitation center and brought him back home after not been happy with the care at this facility however patient has had progressive debilitation, weakness. history has been obtained from who is at bedside patient unable to provide any history due to his dementia.? He is brought today for further evaluation preliminary workup was significant for chest x-ray was reported as Patchy left lower lobe infiltrate and/or atelectasis 06/11/2022 interval history: Patient presented with generalized weakness is found to have pneumonia patient blood culture is growing Gram-positive cocci in cluster patient is being treated with aztreonam and vancomycin however patient is quite somnolent unable to provide any review of symptom for history, his is present in the room and had a long discussion patient seems to have end-stage dementia and on and off he does not eat, drink fluids or communicate, it has been difficult for patient 's to manage, after the last discharge patient was sent to rehab he did not do very well there and his pulled him out and took home, and apparently
[2022-06-11] MEDS: traZODone HCL 50 MG TABLET PO (20:54)
[2022-06-11] MEDS: ASPIRIN 81 MG ENTERIC TABLET PO (20:54)
[2022-06-12] VITALS (9 sets, daily range): BP systolic 113–146; BP diastolic 52–81; PULSE 64–70; RESP 16–20; TEMP 35.9–36.8; O2SAT 93–100
[2022-06-12] MEDS: IPRATROPIUM BR 0.02% INH SOLN 0.5 MG/2.5 ML VIAL INHALATION ×4 (02:40→21:29)
[2022-06-12] MEDS: ALBUTEROL SULFATE NEB 2.5 MG/3 ML INH 5 MG INHALATION (02:40)
[2022-06-12] MEDS: AZTREONAM 1 GM in DEXTROSE 5% IN WATER 50 ML 100 ML IVPB ×3 (05:23→21:07)
[2022-06-12] MEDS: ENOXAPARIN 40 MG/0.4 ML SYRINGE SUB-Q (08:10)
[2022-06-12] MEDS: SODIUM CHLORIDE 0.9% IV 1,000 ML 125 ML IV CONT ×2 (08:10→16:27)
[2022-06-12] MEDS: CHOLECALCIFEROL 1,000 UNITS TABLET 1000 UNITS PO (08:10)
[2022-06-12] MEDS: OLMESARTAN MEDOXOMIL 20 MG TABLET PO (08:10)
[2022-06-12] MEDS: MEMANTINE 5 MG TABLET PO ×2 (08:10→16:27)
[2022-06-12] MEDS: METOPROLOL SUCCINATE EXT REL 12.5 MG TABCR PO (08:10)
[2022-06-12] MEDS: VITAMIN B COMPLEX CAPSULE 1 CAP PO (08:10)
[2022-06-12] MEDS: ESCITALOPRAM OXALATE 10 MG TABLET 20 MG PO (08:10)
[2022-06-12] MEDS: OLMESARTAN MEDOXOMIL 10 MG TABLET PO (08:11)
[2022-06-12] MEDS: LORATADINE 10 MG TABLET PO (08:11)
[2022-06-12] MEDS: PANTOPRAZOLE 40 MG TABLET PO (08:11)
[2022-06-12] MEDS: ALBUTEROL SULFATE NEB 2.5 MG/3 ML INH INHALATION ×3 (08:24→21:29)
[2022-06-12 08:34] LABS: Hematocrit 41.5 % (42.0-52.0); Hemoglobin 13.6 g/dL (14.0-18.0); Mean Corpuscular HGB Conc 32.8 g/dl (32-36); Mean Corpuscular Hemoglobin 32.6 pg (26-34); Mean Corpuscular Volume 99.5 fl (80-100); Mean Platelet Volume 9.4 fl (7.4-10.4); Platelet Count Result 227 k/mm3 (150-375); Red Blood Count 4.17 M/mm3 (4.6-6.20); Red Cell Distribution Width 13.3 % (11.5-14.5); White Blood Count 10.4 K/mm3 (4.5-10.0)
[2022-06-12 08:53] LABS: Anion Gap 12 mmol/L (8-16); Blood Urea Nitrogen 10 mg/dL (9-20); Calcium 7.6 mg/dL (8.4-10.2); Carbon Dioxide 22 mmol/L (22-30); Chloride 110 mmol/L (98-107); Estimated CRCL calculation 64 ml/min; Estimated Glomerular Filt Rate > 60; Glucose 116 mg/dL (65-110); Magnesium 1.9 mg/dL (1.6-2.3); Potassium 3.3 mmol/L (3.4-5.0); Sodium 144 mmol/L (137-145)
--- NOTE | 2022-06-12 13:49 | PM.IMPN ---
Progress Note: A&P Assessment and Plan (1) HCAP (healthcare-associated pneumonia): Code(s): J18.9 - Pneumonia, unspecified organism Status: Acute Assessment and Plan: admit to regular medical floor started on aztreonam and vancomycin cultures in progress HPI-Narrative: ?This is an 81-year-old male with past medical history significant for dementia, patient was just recently discharged from [facility] to rehabilitation [place], he was treated for pneumonia. his talking out of the rehabilitation center and brought him back home after not been happy with the care at this facility however patient has had progressive debilitation, weakness. history has been obtained from who is at bedside patient unable to provide any history due to his dementia.? He is brought today for further evaluation preliminary workup was significant for chest x-ray was reported as Patchy left lower lobe infiltrate and/or atelectasis 06/12/2022 interval history: Patient presented with generalized weakness is found to have pneumonia patient blood culture is growing Gram-positive cocci in cluster patient is being treated with aztreonam and vancomycin however patient is quite somnolent unable to provide any review of symptom for history, today did look up but still no responce, his is present in the room and had a long discussion patient seems to have end-stage dementia and on and off he does not eat, drink fluids or communicate, it has been difficult for patient 's to manage, after the last discharge patient was sent to rehab he did not do very well there and his pulled him out and took home, and apparently it is difficult for her to manage at home too, patient is considering hospice but still not ready for it will continue to monitor and have PT OT evaluate the patient. (2) Generalized weakness: Code(s): R53.1 - Weakness Status: Acute Assessment and Plan: likely secondary to advanced illness and deconditioning (3) Atrial fibrillation: Qualifiers: Atrial fibrillation type: unspecified Qualified Code(s): I48.91 - Unspecified atrial fibrillation Code(s): I48.91 - Unspecified atrial fibrillation Status: Acute Assessment and Plan: continue to monitor (4) Alzheimer's dementia: Code(s): G30.9 - Alzheimer's disease, unspecified; F02.80 - Dementia in other diseases classified elsewhere, unspecified severity, without behavioral disturbance, psychotic disturbance, mood disturbance, and anxiety Status: Acute Assessment and Plan: continue memantine Subjective Date/time seen: 06/12/22 13:49 06/12/2022 interval history: Patient presented with generalized weakness is found to have pneumonia patient blood culture is growing Gram-positive cocci in cluster patient is being treated with aztreonam and vancomycin however patient is quite somnolent unable to provide any review of symptom for history, today did look up but still no responce, his is present in the room and had a long discussion patient seems to have end-stage dementia and on and off he does not eat, drink fluids or communicate, it has been difficult for patient 's to manage, after the last discharge patient was sent to rehab he did not do very well there and his pulled him out and took home, and apparently it is difficult for her to manage at home too, patient is considering hospice but still not ready for it will continue to monitor and have PT OT evaluate the patient. Review of Systems Review of Systems: ROS unobtainable: Yes unobtainable due to medical condition ( Advanced dementia) Exam Narrative: Patient is comfortable, NAD HEENT: eyes are clear and none icteric LUNGS: normal respiratory effort ABD: distended Lower extremities: no edema SKIN: nonjaundiced Neuro: grossly intact patient is quite somnolent. Objective Data Vital Signs Vital Signs: Vital Signs -
[2022-06-12] MEDS: ASPIRIN 81 MG ENTERIC TABLET PO (21:07)
[2022-06-12] MEDS: traZODone HCL 50 MG TABLET PO (21:07)
[2022-06-12 21:51] LABS: Vancomycin Trough 7.3 ug/mL (10.0-20.0)
[2022-06-13] VITALS (8 sets, daily range): BP systolic 123–155; BP diastolic 70–87; PULSE 65–84; RESP 16–20; TEMP 36.1–36.6; O2SAT 94–96
[2022-06-13] MEDS: SODIUM CHLORIDE 0.9% IV 1,000 ML 125 ML IV CONT ×3 (01:10→22:29)
[2022-06-13] MEDS: AZTREONAM 1 GM in DEXTROSE 5% IN WATER 50 ML 100 ML IVPB ×3 (06:47→23:01)
[2022-06-13 07:46] LABS: Hematocrit 41.8 % (42.0-52.0); Hemoglobin 13.5 g/dL (14.0-18.0); Mean Corpuscular HGB Conc 32.3 g/dl (32-36); Mean Corpuscular Hemoglobin 31.7 pg (26-34); Mean Corpuscular Volume 98.1 fl (80-100); Mean Platelet Volume 9.7 fl (7.4-10.4); Platelet Count Result 237 k/mm3 (150-375); Red Blood Count 4.26 M/mm3 (4.6-6.20); Red Cell Distribution Width 13.2 % (11.5-14.5); White Blood Count 10.1 K/mm3 (4.5-10.0)
[2022-06-13 07:58] LABS: Anion Gap 10 mmol/L (8-16); Blood Urea Nitrogen 9 mg/dL (9-20); Calcium 7.6 mg/dL (8.4-10.2); Carbon Dioxide 23 mmol/L (22-30); Chloride 110 mmol/L (98-107); Estimated CRCL calculation 64 ml/min; Estimated Glomerular Filt Rate > 60; Glucose 103 mg/dL (65-110); Magnesium 1.8 mg/dL (1.6-2.3); Potassium 3.2 mmol/L (3.4-5.0); Sodium 143 mmol/L (137-145)
[2022-06-13] MEDS: CHOLECALCIFEROL 1,000 UNITS TABLET 1000 UNITS PO (08:26)
[2022-06-13] MEDS: ENOXAPARIN 40 MG/0.4 ML SYRINGE SUB-Q (08:26)
[2022-06-13] MEDS: PANTOPRAZOLE 40 MG TABLET PO (08:26)
[2022-06-13] MEDS: METOPROLOL SUCCINATE EXT REL 12.5 MG TABCR PO (08:26)
[2022-06-13] MEDS: OLMESARTAN MEDOXOMIL 10 MG TABLET PO (08:26)
[2022-06-13] MEDS: VITAMIN B COMPLEX CAPSULE 1 CAP PO (08:26)
[2022-06-13] MEDS: MEMANTINE 5 MG TABLET PO ×2 (08:26→16:00)
[2022-06-13] MEDS: OLMESARTAN MEDOXOMIL 20 MG TABLET PO (08:26)
[2022-06-13] MEDS: ESCITALOPRAM OXALATE 10 MG TABLET 20 MG PO (08:26)
[2022-06-13] MEDS: LORATADINE 10 MG TABLET PO (08:27)
--- NOTE | 2022-06-13 09:44 | PCRCNOTE ---
Window of time for administration has passed. See next scheduled administration.
--- NOTE | 2022-06-13 16:39 | PM.IMPN ---
Progress Note: A&P Assessment and Plan (1) HCAP (healthcare-associated pneumonia): Code(s): J18.9 - Pneumonia, unspecified organism Status: Acute Assessment and Plan: admit to regular medical floor started on aztreonam and vancomycin cultures in progress HPI-Narrative: ?This is an 81-year-old male with past medical history significant for dementia, patient was just recently discharged from [facility] to rehabilitation center, he was treated for pneumonia. his talking out of the rehabilitation center and brought him back home after not been happy with the care at this facility however patient has had progressive debilitation, weakness. history has been obtained from who is at bedside patient unable to provide any history due to his dementia.? He is brought today for further evaluation preliminary workup was significant for chest x-ray was reported as Patchy left lower lobe infiltrate and/or atelectasis 06/13/2022 interval history: Patient presented with generalized weakness is found to have pneumonia patient blood culture is growing Gram-positive cocci in cluster patient is being treated with aztreonam and vancomycin however patient is quite somnolent unable to provide any review of symptom for history, on 06/12 did look up but still no responce, his is present in the room and had a long discussion patient seems to have end-stage dementia and on and off he does not eat, drink fluids or communicate, it has been difficult for patient 's to manage, after the last discharge patient was sent to rehab he did not do very well there and his pulled him out and took home, and apparently it is difficult for her to manage at home too, both blood culture bottles are growing Staphylococcus epidermidis discussed with ID pharmacy concerning contamination, suggested to continue IV antibiotics repeat blood culture, also concerning for endocarditis will consult Cardiology further recommendation, patient is considering hospice but still not ready for it will continue to monitor and have PT OT evaluate the patient. (2) Generalized weakness: Code(s): R53.1 - Weakness Status: Acute Assessment and Plan: likely secondary to advanced illness and deconditioning (3) Atrial fibrillation: Qualifiers: Atrial fibrillation type: unspecified Qualified Code(s): I48.91 - Unspecified atrial fibrillation Code(s): I48.91 - Unspecified atrial fibrillation Status: Acute Assessment and Plan: continue to monitor (4) Alzheimer's dementia: Code(s): G30.9 - Alzheimer's disease, unspecified; F02.80 - Dementia in other diseases classified elsewhere, unspecified severity, without behavioral disturbance, psychotic disturbance, mood disturbance, and anxiety Status: Acute Assessment and Plan: continue memantine Subjective Date/time seen: 06/13/22 16:39 06/13/2022 interval history: Patient presented with generalized weakness is found to have pneumonia patient blood culture is growing Gram-positive cocci in cluster patient is being treated with aztreonam and vancomycin however patient is quite somnolent unable to provide any review of symptom for history, on 06/12 did look up but still no responce, his is present in the room and had a long discussion patient seems to have end-stage dementia and on and off he does not eat, drink fluids or communicate, it has been difficult for patient 's to manage, after the last discharge patient was sent to rehab he did not do very well there and his pulled him out and took home, and apparently it is difficult for her to manage at home too, both blood culture bottles are growing Staphylococcus epidermidis discussed with ID pharmacy concerning contamination, suggested to continue IV antibiotics repeat blood culture, also concerning for endocarditis will consult Cardiology further recommendation, patient is cons
[2022-06-13] MEDS: IPRATROPIUM BR 0.02% INH SOLN 0.5 MG/2.5 ML VIAL INHALATION (20:15)
[2022-06-13] MEDS: ALBUTEROL SULFATE NEB 2.5 MG/3 ML INH INHALATION (20:15)
[2022-06-13] MEDS: ASPIRIN 81 MG ENTERIC TABLET PO (22:29)
[2022-06-13] MEDS: traZODone HCL 50 MG TABLET PO (22:29)
[2022-06-14] MEDS: AZTREONAM 1 GM in DEXTROSE 5% IN WATER 50 ML 100 ML IVPB ×3 (05:31→23:00)
[2022-06-14 05:51] VITALS: BP 143/79; PULSE 66; RESP 20; TEMP 36.1; O2SAT 94
[2022-06-14 06:57] LABS: Hematocrit 40.2 % (42.0-52.0); Hemoglobin 13.3 g/dL (14.0-18.0); Mean Corpuscular HGB Conc 33.1 g/dl (32-36); Mean Corpuscular Volume 96.6 fl (80-100); Mean Platelet Volume 9.9 fl (7.4-10.4); Platelet Count Result 256 k/mm3 (150-375); Red Blood Count 4.16 M/mm3 (4.6-6.20); Red Cell Distribution Width 13.2 % (11.5-14.5); White Blood Count 10.2 K/mm3 (4.5-10.0)
[2022-06-14 07:09] LABS: Anion Gap 9 mmol/L (8-16); Blood Urea Nitrogen 10 mg/dL (9-20); Calcium 7.7 mg/dL (8.4-10.2); Carbon Dioxide 23 mmol/L (22-30); Chloride 108 mmol/L (98-107); Estimated CRCL calculation 72 ml/min; Estimated Glomerular Filt Rate > 60; Glucose 110 mg/dL (65-110); Magnesium 1.8 mg/dL (1.6-2.3); Potassium 3.3 mmol/L (3.4-5.0); Sodium 140 mmol/L (137-145)
[2022-06-14] MEDS: IPRATROPIUM BR 0.02% INH SOLN 0.5 MG/2.5 ML VIAL INHALATION ×4 (08:00→22:59)
[2022-06-14] MEDS: ALBUTEROL SULFATE NEB 2.5 MG/3 ML INH INHALATION ×4 (08:00→22:59)
[2022-06-14 08:25] VITALS: PULSE 68; RESP 18
[2022-06-14 08:32] VITALS: PULSE 68
[2022-06-14 09:11] VITALS: PULSE 68; O2SAT 94
[2022-06-14] MEDS: POTASSIUM CHLORIDE 20 MEQ TABLET 40 MEQ PO (09:27)
[2022-06-14] MEDS: METOPROLOL SUCCINATE EXT REL 12.5 MG TABCR PO (09:29)
[2022-06-14] MEDS: CHOLECALCIFEROL 1,000 UNITS TABLET 1000 UNITS PO (09:29)
[2022-06-14] MEDS: PANTOPRAZOLE 40 MG TABLET PO (09:30)
[2022-06-14] MEDS: MEMANTINE 5 MG TABLET PO ×2 (09:30→17:02)
[2022-06-14] MEDS: OLMESARTAN MEDOXOMIL 20 MG TABLET PO (09:30)
[2022-06-14] MEDS: ENOXAPARIN 40 MG/0.4 ML SYRINGE SUB-Q (09:30)
[2022-06-14] MEDS: LORATADINE 10 MG TABLET PO (09:30)
[2022-06-14] MEDS: ESCITALOPRAM OXALATE 10 MG TABLET 20 MG PO (09:30)
[2022-06-14] MEDS: OLMESARTAN MEDOXOMIL 10 MG TABLET PO (09:30)
--- NOTE | 2022-06-14 12:29 | PM.CNCAR ---
Assessment and Plan Assessment and plan (1) Bacteremia: Code(s): R78.81 - Bacteremia Status: Ruled-out Assessment and Plan: The patient had a blood culture positive for Staph epidermidis (and another 1 positive for Enterococcus) last admission and 2 blood cultures positive for Staph epi this admission making it less likely this is a contaminant and more likely this is a true bacteremia. May be due to due to endocarditis. Transthoracic echo last admission did not show any obvious vegetations although he does have aortic valve sclerosis and mitral annular calcification which can obscure vegetations. Discussed extensively with the patient's who was at the bedside and later with the patient's daughter, as the patient's is struggling with making decisions about the patient's care. Transesophageal echo would be the best way to rule out endocarditis and, if he were to have endocarditis, usually 4 weeks of IV antibiotic therapy is recommended. Ms. Davis did not want him to go to a CT for 4 weeks of antibiotics and reluctant to pursue initially. This does not necessarily mean he would be in the hospital for 4 weeks as IV infusions can be done in some nursing homes and also through home infusion therapy at times. Alternatively, we can follow clinically with repeat blood cultures etc. and see if the patient appears to have cleared his bacteremia or not. However, if endocarditis were present and not treated adequately he could develop significant valve dysfunction and heart failure etc. After a long discussion, the patient is and the daughter Gisell support proceeding with a transesophageal echo which I have Reviewed in detail including the need for conscious sedation, and I have scheduled this for tomorrow. (2) Alzheimer's dementia: Code(s): G30.9 - Alzheimer's disease, unspecified; F02.80 - Dementia in other diseases classified elsewhere, unspecified severity, without behavioral disturbance, psychotic disturbance, mood disturbance, and anxiety Status: Acute (3) DNR (do not resuscitate) discussion: Code(s): Z71.89 - Other specified counseling Status: Acute Assessment and Plan: Patient is listed as a full code. The was considering Hospice, but decided not to pursue. The patient's states that she is the [id number] and tells me the patient does not want CPR, intubation, life support etc. She would like full care up to the point that he were about to , then let him of natural causes. With that in mind, I will change his code status to DNR. Patient's is in agreement. 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 Heart status has been stable for a long time. History of Present Illness History of Present Illness Consult date/time: 06/14/22 12:29 Reason For Visit: Pneumonia, generalized weakness Narrative: Richard Davis Is an 81-year-old male whom we were asked to see at the request of Dr. Reddy for advice and opinion regarding his staph epidermis bacteremia and possible need for a transesophageal echo, in consultation. The patient has a history of dementia and was treated [facility] for pneumonia in early May. he had 1 blood culture positive for Staph epidermis and another blood culture positive for Enterococcus He was readmitted with weakness and found to have pneumonia. Blood cultures showed Staph epidermidis in 2 blood cultures. Repeat blood cultures are pending. he apparently has dental issues with dental caries. No esophageal problems or, to the 's knowledge, loose teeth. History was obtained from the patient's who is at the bedside as well as the patient's daughter by FaceTime due to his advanced dementia. H/O CABG; It does
[2022-06-14 14:18] VITALS: BP 138/72; PULSE 66; RESP 20; TEMP 36.9; O2SAT 95
[2022-06-14] MEDS: SODIUM CHLORIDE 0.9% IV 1,000 ML 125 ML IV CONT (17:02)
--- NOTE | 2022-06-14 17:30 | PM.IMPN ---
Progress Note: A&P Assessment and Plan (1) HCAP (healthcare-associated pneumonia): Code(s): J18.9 - Pneumonia, unspecified organism Status: Acute Assessment and Plan: admit to regular medical floor started on aztreonam and vancomycin cultures in progress HPI-Narrative: ?This is an 81-year-old male with past medical history significant for dementia, patient was just recently discharged from [facility] to rehabilitation [facility], he was treated for pneumonia. his talking out of the rehabilitation center and brought him back home after not been happy with the care at this facility however patient has had progressive debilitation, weakness. history has been obtained from who is at bedside patient unable to provide any history due to his dementia.? 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s epidermidis discussed with ID pharmacy concerning contamination, suggested to continue IV antibiotics repeat blood culture, also concerning for endocarditis, seen by beveling and edging machine operator and recommended SHANA to further evaluation, patient is reluctant for SHANA, patient is considering hospice but still not ready for it will continue to monitor and have PT OT evaluate the patient. (2) Generalized weakness: Code(s): R53.1 - Weakness Status: Acute Assessment and Plan: likely secondary to advanced illness and deconditioning (3) Atrial fibrillation: Qualifiers: Atrial fibrillation type: unspecified Qualified Code(s): I48.91 - Unspecified atrial fibrillation Code(s): I48.91 - Unspecified atrial fibrillation Status: Acute Assessment and Plan: continue to monitor (4) Alzheimer's dementia: Code(s): G30.9 - Alzheimer's disease, unspecified; F02.80 - Dementia in other diseases classified elsewhere, unspecified severity, without behavioral disturbance, psychotic disturbance, mood disturbance, and anxiety Status: Acute Assessment and Plan: continue memantine Subjective Date/time seen: 06/14/22 17:30 HPI-Narrative: ?This is an 81-year-old male with past medical history significant for dementia, patient was just recently discharged from [facility] to rehabilitation [facility], he was treated for pneumonia. his talking out of the rehabilitation center and brought him back home after not been happy with the care at this facility however patient has had progressive debilitation, weakness. history has been obtained from who is at bedside patient unable to provide any history due to his dementia.? He is brought today for further evaluation preliminary workup was significant for chest x-ray was reported as Patchy left lower lobe infiltrate and/or atelectasis 06/14/2022 interval history: Patient presented with generalized weakness is found to have pneumonia patient blood culture is growing Gram-positive cocci in cluster patient is being treated with aztreonam and vancomycin however patient is quite somnolent unable to provide any review of symptom
[2022-06-14] MEDS: traZODone HCL 50 MG TABLET PO (20:38)
[2022-06-14] MEDS: ASPIRIN 81 MG ENTERIC TABLET PO (20:38)
[2022-06-14 22:00] VITALS: BP 136/82; PULSE 66; RESP 18; TEMP 36.3; O2SAT 94
[2022-06-15] VITALS (22 sets, daily range): BP systolic 115–168; BP diastolic 62–144; PULSE 66–88; RESP 11–26; TEMP 36.3–36.9; O2SAT 90–97
--- NOTE | 2022-06-15 01:29 | PC.NURSE ---
Re: patient's spouse Patient's spouse was reported to face and fill packer by staff for yelling at the patient's nurse at the onset of shift on 06/14/22 at 1905. face and fill packer notified powerhouse operator and requested assistance in speaking with the patient's spouse regarding her behavior as face and fill packer had previously experienced issues and was trying to alleviate unnecessary tension. Upon arrival to patient room in efforts to identify the concerns, patient was observed speaking loudly into the phone and verbalizing complaints r/t patient care. Patient RN was attempting to resolve complaints with patient spouse observed to speak over him. Patient spouse continued with phone call after acknowledging verbally that someone in charge had come into the room. face and fill packer and powerhouse operator dismissed themselves from the room and communicated that if the patient's spouse would still like to speak with them that they would return to speak with her. On a previous shift, patient spouse had been reported to the face and fill packer for witnessed verbal aggression demonstrated towards patient. Visiting hours had passed and the patient's was requested to leave, to which she demonstrated increased agitation and yelled at the monorail charger operator, refusing to leave. face and fill packer apologized if the request for clarification was upsetting to her and that the intent was not to upset her, but to clarify necessity of patient's spouse to not adhere to the visiting policy. Patient's spouse continued to yell at the monorail charger operator and was then advised that she could not speak to staff and/or her spouse that way in the hospital setting. No note was entered at that time as patient's spouse was noted to have improved demeanor towards both staff and patient.
[2022-06-15] MEDS: SODIUM CHLORIDE 0.9% IV 1,000 ML 125 ML IV CONT ×2 (02:16→23:57)
[2022-06-15 04:34] LABS: Hematocrit 41.2 % (42.0-52.0); Hemoglobin 13.2 g/dL (14.0-18.0); Mean Platelet Volume 9.7 fl (7.4-10.4); Platelet Count Result 242 k/mm3 (150-375); Red Blood Count 4.12 M/mm3 (4.6-6.20); Red Cell Distribution Width 13.5 % (11.5-14.5); White Blood Count 9.4 K/mm3 (4.5-10.0)
[2022-06-15 04:43] LABS: Anion Gap 5 mmol/L (8-16); Blood Urea Nitrogen 11 mg/dL (9-20); Calcium 7.8 mg/dL (8.4-10.2); Carbon Dioxide 24 mmol/L (22-30); Chloride 110 mmol/L (98-107); Estimated CRCL calculation 72 ml/min; Estimated Glomerular Filt Rate > 60; Glucose 119 mg/dL (65-110); Magnesium 1.7 mg/dL (1.6-2.3); Potassium 3.5 mmol/L (3.4-5.0); Sodium 139 mmol/L (137-145)
[2022-06-15 05:32] LABS: Vancomycin Trough 11.7 ug/mL (10.0-20.0)
[2022-06-15] MEDS: AZTREONAM 1 GM in DEXTROSE 5% IN WATER 50 ML 100 ML IVPB ×3 (05:35→20:11)
[2022-06-15] MEDS: IPRATROPIUM BR 0.02% INH SOLN 0.5 MG/2.5 ML VIAL INHALATION ×2 (10:06→14:46)
[2022-06-15] MEDS: ALBUTEROL SULFATE NEB 2.5 MG/3 ML INH INHALATION ×2 (10:06→14:46)
--- NOTE | 2022-06-15 11:16 | WPDHPUPDATE1 ---
History and Physical Update Update Date/Time: 06/15/22 11:16 History and Physical has been reviewed, including an updated exam of the patient. Patient's and daughter at the bedside; Mrs. Schmid had several questions about the procedure and conscious sedation which were answered to her satisfaction. Assured the patient's that he would be monitored continuously for safety. Because of his age and underlying dementia he may have a prolonged effect from the Versed and fentanyl. If there was difficulty with the procedure, it may be abandoned, but that would be unlikely outcome. The patient is a awake but less animated today, lying supine in no distress, otherwise there are NO changes in the patient's condition. Risks, benefits, and alternatives have been discussed and questions answered. Patient agrees to proceed with procedure.
--- NOTE | 2022-06-15 11:18 | WPDMODSED ---
Moderate Sedation Note-Pt Data Patient Data Diagnosis: Bacteremia, rule out endocarditis Present Complaint: Richard Davis is an 81-year-old male who has a history of advanced Alzheimer's dementia and was? treated [facility] for? pneumonia in early May. ? he had 1 blood culture positive for Staph? epidermis and another blood culture positive for Enterococcus? He was readmitted with weakness and found to have pneumonia.? Blood cultures showed Staph epidermidis? in 2 blood cultures.? Repeat blood cultures are pending. Because of concern of recurrent staph epi bacteremia and possibility of endocarditis I have recommended a transesophageal echo for further evaluation. Procedure to be performed/Plan: Conscious sedation Transesophageal echo Allergies Allergy/AdvReac Type Severity Reaction Status Date / Time Penicillins Allergy Severe Hives Verified 06/09/22 19:36 morphine AdvReac Hallucinati Verified 06/09/22 19:36 ng Home Medications Medication Instructions Recorded Confirmed Type alogliptin 12.5 mg tablet 12.5 mg PO DAILY 07/01/19 06/10/22 History aspirin 81 mg tablet,delayed 81 mg PO HS 07/01/19 06/10/22 History release cholecalciferol (vitamin D3) 25 1,000 unit PO DAILY 07/01/19 06/10/22 History mcg (1,000 unit) capsule (Vitamin D3) fluticasone propionate 50 1 spray intranasal DAILY PRN Runny 07/01/19 06/10/22 History mcg/actuation nasal Nose spray,suspension (Flonase Allergy Relief) lovastatin 40 mg tablet 20 mg PO QPM 07/01/19 06/10/22 History metoprolol succinate 25 mg 12.5 mg PO DAILY 07/01/19 06/10/22 History tablet,extended release 24 hr olmesartan 20 mg tablet 30 mg PO DAILY 07/01/19 06/10/22 History omeprazole 40 mg capsule,delayed 40 mg PO DAILY 07/01/19 06/10/22 History release trazodone 50 mg tablet 50 mg PO HS PRN Insomnia 07/01/19 06/10/22 History vitamin B complex (B 1 tablet PO DAILY 07/01/19 06/10/22 History Complex-Vitamin B12 tablet) cetirizine 10 mg PO HS 05/20/22 06/10/22 History escitalopram oxalate 20 mg tablet 20 mg PO DAILY 05/20/22 06/10/22 History albuterol sulfate 90 mcg/actuation 1 inh inhalation QID PRN shortness 05/25/22 06/10/22 Rx aerosol inhaler of breath or wheezing #6.7 grams memantine 5 mg tablet 5 mg PO BID 06/10/22 06/10/22 History Current Medications: Active Medications Acetaminophen (Acetaminophen 325 Mg Tablet) 650 mg PO Q4H PRN PRN Reason: Mild Pain (1-3) or Fever Albuterol (Albuterol Sulfate (*Sp) Aerosol 1 Puff) 1 puff INHALATION QID PRN PRN Reason: shortness of breath or wheezing Albuterol (Albuterol Sulfate Neb 2.5 Mg/3 Ml Inh) 2.5 mg INHALATION Q6HRT [facility] Last Admin: 06/15/22 10:06 Dose: 2.5 mg Aspirin (Aspirin 81 Mg Enteric Tablet) 81 mg PO HS [facility] Last Admin: 06/14/22 20:38 Dose: 81 mg Enoxaparin Sodium (Enoxaparin 40 Mg/0.4 Ml Syringe) 40 mg SUB-Q DAILY [facility] Last Admin: 06/14/22 09:30 Dose: 40 mg Escitalopram Oxalate (Escitalopram Oxalate 10 Mg Tablet) 20 mg PO DAILY [facility] Last Admin: 06/14/22 09:30 Dose: 20 mg Fluticasone Propionate (Fluticasone Propionate 0.05% Na Spr 16 Gm Btl (*Bkc)) 1 spray NASAL DAILY PRN PRN Reason: Runny Nose Aztreonam 1 gm/ Dextrose 50 mls @ 100 mls/hr IVPB Q8H [facility] Last Infusion: 06/15/22 06:05 Dose: Infused Sodium Chloride (Normal Saline Iv) 1,000 mls @ 125 mls/hr IV CONT .Q8H [facility] Last Admin: 06/15/22 02:16 Dose: 125 mls/hr Vancomycin HCl (Vancomycin 1,250 Mg/D5w 250 Ml) 1,250 mg in 250 mls @ 200 mls/hr IVPB Q18H [facility] Last Admin: 06/15/22 06:31 Dose: 200 mls/hr Ipratropium [place] (Ipratropium Br 0.02% Inh Soln 0.5 Mg/2.5 Ml Vial) 0.5 mg INHALATION Q6HRT [facility] Last Admin: 06/15/22 10:06 Dose: 0.5 mg Loratadine (Loratadine 10 Mg Tablet) 10 mg PO QAM [facility] Last Admin: 06/14/22 09:30 Dose: 10 mg Memantine (Memantine 5 Mg Tablet) 5 mg PO BID [facility] Last Admin: 06/14/22 17:02 Dose: 5 mg Metoprolol Succinate (Metoprolol Succinate Ext Rel 12.5 Mg Tabcr) 12.5 m
--- NOTE | 2022-06-15 12:02 | PM.OP ---
Procedure Note - Brief Procedure Note - Brief Date of procedure: 06/15/22 Pre-op diagnosis: Pneumonia, generalized weakness Bacteremia Procedure performed: Conscious sedation SHANA Description of procedure: SHANA showed 2 small AV vegetations. Surgeon: Rayne Eckert MD
--- NOTE | 2022-06-15 13:32 | W.PM.PROC2 ---
Procedure Note - Detailed Date of Procedure 06/15/22 Pre-op Diagnosis Bacteremia Post-op Diagnosis Other ( aortic valve endocarditis) Procedure Performed conscious sedation Transesophageal echo Surgeon Rayne Eckert MD
--- NOTE | 2022-06-15 13:34 | P.PCNTEE_ITS ---
SHANA TransEsophageal Echocardiogram Date of procedure: 06/15/22 Procedure Type: conscious sedation Transesophageal echo Diagnosis: bacteremia Indications: The patient has a history of dementia and was? treated [facility] for? pneumonia in early May. ? he had 1 blood culture positive for Staph? epidermis and another blood culture positive for Enterococcus? He was readmitted with weakness and found to have pneumonia.? Blood cultures showed Staph epidermidis? in 2 blood cultures.? Repeat blood cultures are pending. there is concerns that he may have endocarditis and I recommended transesophageal echo for to evaluate further. Image Quality: Good Findings: Conscious sedation: Assessment: The patient has no history of anesthesia problems. The patient's oropharynx is clear. The patient was deemed to be a good candidate for conscious sedation. The patient had continuous hemodynamic and oximetric monitoring during the procedure. Start time: 1137 Completion time: 1159 Total conscious sedation time: 22 minutes Medications Used: Versed 2 mg, fentanyl 50 mcg IV push Trained observer: Lexx Eduardo, IZABELA, Michelle Huggins RN and Vanesa Irby RN Outcome: The patient tolerated the procedure well with no complications. Procedure: After informed consent the patient had Hurricaine spray the hypopharynx. The patient had conscious sedation as described above. The transesophageal echo probe was introduced in the esophagus without difficulty. Imaging was obtained in multiplane views. Agitated saline was injected to evaluate for intracardiac shunting. The patient tolerated the procedure well with no complications. Findings: The left atrium was moderately enlarged. There is no thrombus present in the left atrium or left atrial appendage. The atrial septum appears to of patent foramen ovale. Mitral valve appeared normal, with very minimal prolapse. The left ventricle had had normal size with mild concentric hypertrophy with good contractility of all segments. The ejection fraction is estimated to be: 60%. The aortic root was normal. There appeared to be two small mobile masses on the aortic valve. One, associated with the left coronary cusp, was 0.9 x 0.2 cm. The other, associated with a non coronary cusps, was 0.8 x 0.2 cm. The ascending aorta was normal. The aortic arch and descending thoracic aorta had moderate atherosclerosis. The right atrium, tricuspid valve, right ventricle, pulmonic valve and pulmonic artery were all normal. There is no pericardial effusion. When agitated saline was injected intravenously there was no evidence of a moderately large amount of intracardiac [id number] shunting through the patent foramen ovale. Colorflow Doppler Findings: Trace mitral and trace aortic insufficiency Conclusions: 1. Normal left ventricular function, ejection fraction 60% with mild concentric hypertrophy. 2. Two small vegetations noted on the aortic valve as above. 3. Trace aortic insufficiency 4. Trace mitral regurgitation 5. Moderate aortic atherosclerosis 6. Patent foramen ovale with a moderately large [id number] shunt Discussed results extensively w/ and daughter, reviewed the need for likely 4 weeks of IV antibiotics. Discussed poss PICC line. is hoping to discharge the pt home to daughter's house with infusion services. Discussed w/ Dr. Reddy as well.
--- NOTE | 2022-06-15 13:45 | PM.IMPN ---
Progress Note: A&P Assessment and Plan (1) HCAP (healthcare-associated pneumonia): Code(s): J18.9 - Pneumonia, unspecified organism Status: Acute Assessment and Plan: admit to regular medical floor started on aztreonam and vancomycin cultures in progress HPI-Narrative: ?This is an 81-year-old male with past medical history significant for dementia, patient was just recently discharged from [facility] to rehabilitation center, he was treated for pneumonia. his talking out of the rehabilitation center and brought him back home after not been happy with the care at this facility however patient has had progressive debilitation, weakness. history has been obtained from who is at bedside patient unable to provide any history due to his dementia.? 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s epidermidis discussed with ID pharmacy concerning contamination, suggested to continue IV antibiotics repeat blood culture, no growth so far, also concerning for endocarditis, was seen by groutman and recommended SHANA to further evaluation, today patient had a SHANA and shows vegetation on aortic valve, now patient will require total 4 weeks of IV antibiotics, will discuss with the ID pharmacist, and further recommendation to followpatient is considering hospice but still not ready for it will continue to monitor and have PT OT evaluate the patient. (2) Generalized weakness: Code(s): R53.1 - Weakness Status: Acute Assessment and Plan: likely secondary to advanced illness and deconditioning (3) Atrial fibrillation: Qualifiers: Atrial fibrillation type: unspecified Qualified Code(s): I48.91 - Unspecified atrial fibrillation Code(s): I48.91 - Unspecified atrial fibrillation Status: Acute Assessment and Plan: continue to monitor (4) Alzheimer's dementia: Code(s): G30.9 - Alzheimer's disease, unspecified; F02.80 - Dementia in other diseases classified elsewhere, unspecified severity, without behavioral disturbance, psychotic disturbance, mood disturbance, and anxiety Status: Acute Assessment and Plan: continue memantine Subjective Date/time seen: 06/15/22 13:45 HPI-Narrative: ?This is an 81-year-old male with past medical history significant for dementia, patient was just recently discharged from [facility] to rehabilitation center, he was treated for pneumonia. his talking out of the rehabilitation center and brought him back home after not been happy with the care at this facility however patient has had progressive debilitation, weakness. history has been obtained from who is at bedside patient unable to provide any history due to his dementia.? He is brought today for further evaluation preliminary workup was significant for chest x-ray was reported as Patchy left lower lobe infiltrate and/or atelectasis 06/15/2022 interval history: Patient presented with generalized weakness is found to have pneumonia patient jesica
--- NOTE | 2022-06-15 14:10 | PC.NURSE ---
pt returned from SHANA to room via bed, family at bedside, have spoken with MD, pt resting comfortably
--- NOTE | 2022-06-15 14:56 | PC.NURSE ---
has ordered pt something to eat will administer medications with meal per request
[2022-06-15] MEDS: ESCITALOPRAM OXALATE 10 MG TABLET 20 MG PO (16:49)
[2022-06-15] MEDS: POTASSIUM CHLORIDE 20 MEQ TABLET 40 MEQ PO (16:49)
[2022-06-15] MEDS: METOPROLOL SUCCINATE EXT REL 12.5 MG TABCR PO (16:50)
[2022-06-15] MEDS: CHOLECALCIFEROL 1,000 UNITS TABLET 1000 UNITS PO (16:50)
[2022-06-15] MEDS: LORATADINE 10 MG TABLET PO (16:50)
[2022-06-15] MEDS: ENOXAPARIN 40 MG/0.4 ML SYRINGE SUB-Q (16:51)
[2022-06-15] MEDS: MEMANTINE 5 MG TABLET PO (16:51)
[2022-06-15] MEDS: PANTOPRAZOLE 40 MG TABLET PO (16:51)
[2022-06-15] MEDS: MULTIVITS W-FE,MIN CHEWABLE TABLET 1 TABLET PO (16:51)
[2022-06-15] MEDS: OLMESARTAN MEDOXOMIL 20 MG TABLET PO (16:51)
[2022-06-15] MEDS: OLMESARTAN MEDOXOMIL 10 MG TABLET PO (16:52)
[2022-06-15] MEDS: traZODone HCL 50 MG TABLET PO (20:11)
[2022-06-15] MEDS: ASPIRIN 81 MG ENTERIC TABLET PO (20:12)
--- NOTE | 2022-06-15 21:56 | PCRCNOTE ---
Window of time for administration has passed. See next scheduled administration.
[2022-06-16] VITALS (15 sets, daily range): BP systolic 136–146; BP diastolic 73–87; PULSE 53–80; RESP 15–22; TEMP 36.1–37.4; O2SAT 92–95
[2022-06-16] MEDS: IPRATROPIUM BR 0.02% INH SOLN 0.5 MG/2.5 ML VIAL INHALATION ×4 (02:24→20:52)
[2022-06-16] MEDS: ALBUTEROL SULFATE NEB 2.5 MG/3 ML INH INHALATION ×4 (02:24→20:52)
[2022-06-16] MEDS: AZTREONAM 1 GM in DEXTROSE 5% IN WATER 50 ML 100 ML IVPB (05:40)
[2022-06-16 07:29] LABS: Anion Gap 6 mmol/L (8-16); Blood Urea Nitrogen 7 mg/dL (9-20); Carbon Dioxide 23 mmol/L (22-30); Chloride 109 mmol/L (98-107); Estimated CRCL calculation 83 ml/min; Estimated Glomerular Filt Rate > 60; Glucose 111 mg/dL (65-110); Hematocrit 42.5 % (42.0-52.0); Hemoglobin 13.7 g/dL (14.0-18.0); Magnesium 1.7 mg/dL (1.6-2.3); Mean Corpuscular HGB Conc 32.2 g/dl (32-36); Mean Corpuscular Hemoglobin 32.4 pg (26-34); Mean Corpuscular Volume 100.5 fl (80-100); Mean Platelet Volume 9.5 fl (7.4-10.4); Platelet Count Result 305 k/mm3 (150-375); Potassium 3.7 mmol/L (3.4-5.0); Red Blood Count 4.23 M/mm3 (4.6-6.20); Red Cell Distribution Width 13.5 % (11.5-14.5); Sodium 138 mmol/L (137-145); White Blood Count 9.4 K/mm3 (4.5-10.0)
[2022-06-16] MEDS: SODIUM CHLORIDE 0.9% IV 1,000 ML 125 ML IV CONT ×2 (08:22→20:55)
[2022-06-16] MEDS: DOCUSATE SODIUM 100 MG CAPSULE PO (08:30)
[2022-06-16] MEDS: ESCITALOPRAM OXALATE 10 MG TABLET 20 MG PO (08:30)
[2022-06-16] MEDS: METOPROLOL SUCCINATE EXT REL 12.5 MG TABCR PO (08:30)
[2022-06-16] MEDS: MULTIVITS W-FE,MIN CHEWABLE TABLET 1 TABLET PO (08:30)
[2022-06-16] MEDS: PANTOPRAZOLE 40 MG TABLET PO (08:30)
[2022-06-16] MEDS: OLMESARTAN MEDOXOMIL 20 MG TABLET PO (08:30)
[2022-06-16] MEDS: CHOLECALCIFEROL 1,000 UNITS TABLET 1000 UNITS PO (08:31)
[2022-06-16] MEDS: ENOXAPARIN 40 MG/0.4 ML SYRINGE SUB-Q (08:31)
[2022-06-16] MEDS: LORATADINE 10 MG TABLET PO (08:31)
[2022-06-16] MEDS: OLMESARTAN MEDOXOMIL 10 MG TABLET PO (08:32)
[2022-06-16] MEDS: MEMANTINE 5 MG TABLET PO ×2 (08:34→17:55)
--- NOTE | 2022-06-16 13:16 | PM.IMPN ---
Progress Note: A&P Assessment and Plan (1) HCAP (healthcare-associated pneumonia): Code(s): J18.9 - Pneumonia, unspecified organism Status: Acute Assessment and Plan: admit to regular medical floor started on aztreonam and vancomycin cultures in progress HPI-Narrative: ?This is an 81-year-old male with past medical history significant for dementia, patient was just recently discharged from [facility] to rehabilitation [place], he was treated for pneumonia. his talking out of the rehabilitation center and brought him back home after not been happy with the care at this facility however patient has had progressive debilitation, weakness. history has been obtained from who is at bedside patient unable to provide any history due to his dementia.? 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s epidermidis discussed with ID pharmacy concerning contamination, suggested to continue IV antibiotics repeat blood culture, no growth so far, also concerning for endocarditis, was seen by optical technician and recommended SHANA to further evaluation, today patient had a SHANA and shows vegetation on aortic valve, now patient will require total 6 weeks of IV antibiotics discussed with the ID pharmacist, plan is to place PICC line today, patietn is clinically stable and there are no new complaints, and further recommendation to follow patient (2) Generalized weakness: Code(s): R53.1 - Weakness Status: Acute Assessment and Plan: likely secondary to advanced illness and deconditioning (3) Atrial fibrillation: Qualifiers: Atrial fibrillation type: unspecified Qualified Code(s): I48.91 - Unspecified atrial fibrillation Code(s): I48.91 - Unspecified atrial fibrillation Status: Acute Assessment and Plan: continue to monitor (4) Alzheimer's dementia: Code(s): G30.9 - Alzheimer's disease, unspecified; F02.80 - Dementia in other diseases classified elsewhere, unspecified severity, without behavioral disturbance, psychotic disturbance, mood disturbance, and anxiety Status: Acute Assessment and Plan: continue memantine Subjective Date/time seen: 06/16/22 13:16 06/16/2022 interval history: Patient presented with generalized weakness is found to have pneumonia patient blood culture is growing Gram-positive cocci in cluster patient is being treated with aztreonam and vancomycin however patient is quite somnolent unable to provide any review of symptom for history, on 06/12 did look up but still no responce, his is present in the room and had a long discussion 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
[2022-06-16] MEDS: ASPIRIN 81 MG ENTERIC TABLET PO (20:57)
--- NOTE | 2022-06-16 21:33 | ECG_ITS ---
Measurements Intervals [place] Rate: 69 P: MD: 0 QRS: 95 QRSD: 102 T: -47 QT: 322 QTc: 345 Interpretive Statements ATRIAL FLUTTER/TACHYCARDIA RIGHT AXIS DEVIATION INFERIOR INFARCT, AGE INDETERMINATE BORDERLINE ST-T WAVE ABNORMALITY- ANTEROLATERAL LEADS BASELINE ARTIFACT- I, II, AVR, AVL, AVF, V4-V6 ABNORMAL ECG COMPARED TO ECG 06/09/2022 20:03:05 NO SIGNIFICANT CHANGES Electronically Signed On 06-17-2022 7:01:01 CDT by Santosh Graves D.O.
[2022-06-16 21:53] LABS: Hematocrit 40.3 % (42.0-52.0); Hemoglobin 13.1 g/dL (14.0-18.0); Mean Corpuscular HGB Conc 32.5 g/dl (32-36); Mean Corpuscular Hemoglobin 32.1 pg (26-34); Mean Corpuscular Volume 98.8 fl (80-100); Mean Platelet Volume 9.1 fl (7.4-10.4); Platelet Count Result 245 k/mm3 (150-375); Red Blood Count 4.08 M/mm3 (4.6-6.20); Red Cell Distribution Width 13.6 % (11.5-14.5); White Blood Count 10.6 K/mm3 (4.5-10.0)
[2022-06-16] MEDS: traZODone HCL 50 MG TABLET PO (22:24)
[2022-06-17] VITALS (17 sets, daily range): BP systolic 126–145; BP diastolic 75–81; PULSE 67–74; RESP 16–20; TEMP 36.2–37.7; O2SAT 90–94
[2022-06-17 06:28] LABS: Hematocrit 40.8 % (42.0-52.0); Hemoglobin 13.3 g/dL (14.0-18.0); Mean Corpuscular HGB Conc 32.6 g/dl (32-36); Mean Corpuscular Hemoglobin 31.4 pg (26-34); Mean Corpuscular Volume 96.5 fl (80-100); Mean Platelet Volume 9.3 fl (7.4-10.4); Platelet Count Result 302 k/mm3 (150-375); Red Blood Count 4.23 M/mm3 (4.6-6.20); Red Cell Distribution Width 13.5 % (11.5-14.5); White Blood Count 9.8 K/mm3 (4.5-10.0)
[2022-06-17 06:41] LABS: Potassium 3.3 mmol/L (3.4-5.0)
[2022-06-17 07:23] LABS: Anion Gap 9 mmol/L (8-16); Blood Urea Nitrogen 6 mg/dL (9-20); Calcium 7.9 mg/dL (8.4-10.2); Carbon Dioxide 24 mmol/L (22-30); Chloride 107 mmol/L (98-107); Estimated CRCL calculation 83 ml/min; Estimated Glomerular Filt Rate > 60; Glucose 123 mg/dL (65-110); Magnesium 1.8 mg/dL (1.6-2.3); Sodium 140 mmol/L (137-145)
[2022-06-17] MEDS: OLMESARTAN MEDOXOMIL 10 MG TABLET PO (09:04)
[2022-06-17] MEDS: ESCITALOPRAM OXALATE 10 MG TABLET 20 MG PO (09:04)
[2022-06-17] MEDS: MULTIVITS W-FE,MIN CHEWABLE TABLET 1 TABLET PO (09:04)
[2022-06-17] MEDS: CHOLECALCIFEROL 1,000 UNITS TABLET 1000 UNITS PO (09:04)
[2022-06-17] MEDS: OLMESARTAN MEDOXOMIL 20 MG TABLET PO (09:04)
[2022-06-17] MEDS: DOCUSATE SODIUM 100 MG CAPSULE PO (09:04)
[2022-06-17] MEDS: METOPROLOL SUCCINATE EXT REL 12.5 MG TABCR PO (09:05)
[2022-06-17] MEDS: ENOXAPARIN 40 MG/0.4 ML SYRINGE SUB-Q (09:05)
[2022-06-17] MEDS: PANTOPRAZOLE 40 MG TABLET PO (09:05)
[2022-06-17] MEDS: MEMANTINE 5 MG TABLET PO ×2 (09:05→16:53)
[2022-06-17] MEDS: LORATADINE 10 MG TABLET PO (09:05)
[2022-06-17] MEDS: POTASSIUM CHLORIDE 20 MEQ TABLET 40 MEQ PO (09:10)
[2022-06-17] MEDS: ALBUTEROL SULFATE NEB 2.5 MG/3 ML INH INHALATION ×3 (09:53→20:55)
[2022-06-17] MEDS: IPRATROPIUM BR 0.02% INH SOLN 0.5 MG/2.5 ML VIAL INHALATION ×3 (09:54→20:55)
[2022-06-17 11:48] LABS: Vancomycin Trough 18.8 ug/mL (10.0-20.0)
--- NOTE | 2022-06-17 12:41 | PM.IMPN ---
Progress Note: A&P Assessment and Plan (1) HCAP (healthcare-associated pneumonia): Code(s): J18.9 - Pneumonia, unspecified organism Status: Acute Assessment and Plan: admit to regular medical floor started on aztreonam and vancomycin cultures in progress HPI-Narrative: ?This is an 81-year-old male with past medical history significant for dementia, patient was just recently discharged from [facility] to rehabilitation [place], he was treated for pneumonia. his talking out of the rehabilitation center and brought him back home after not been happy with the care at this facility however patient has had progressive debilitation, weakness. history has been obtained from who is at bedside patient unable to provide any history due to his dementia.? 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 and on and off he does not eat, drink fluids or communicate, it has been difficult for patient 's to manage, after the last discharge patient was sent to rehab he did not do very well there and his pulled him out and took home, and apparently it is difficult for her to manage at home too, on 06/13 both blood culture bottles were growing Staphylococcus epidermidis discussed with ID pharmacy concerning contamination, suggested to continue IV antibiotics repeat blood culture, no growth so far, also concerning for endocarditis, was seen by grain shipper and recommended SHANA to further evaluation, on 06/15 patient had a SHANA and showed vegetation on aortic valve, now patient will require total 6 weeks of IV antibiotics discussed with the ID pharmacist, plan is to place PICC line today, patient is clinically stable and there are no new complaints, and further recommendation to follow patient (2) Generalized weakness: Code(s): R53.1 - Weakness Status: Acute Assessment and Plan: likely secondary to advanced illness and deconditioning (3) Atrial fibrillation: Qualifiers: Atrial fibrillation type: unspecified Qualified Code(s): I48.91 - Unspecified atrial fibrillation Code(s): I48.91 - Unspecified atrial fibrillation Status: Acute Assessment and Plan: continue to monitor (4) Alzheimer's dementia: Code(s): G30.9 - Alzheimer's disease, unspecified; F02.80 - Dementia in other diseases classified elsewhere, unspecified severity, without behavioral disturbance, psychotic disturbance, mood disturbance, and anxiety Status: Acute Assessment and Plan: continue memantine Subjective Date/time seen: 06/17/22 12:41 cultures in progress HPI-Narrative: ?This is an 81-year-old male with past medical history significant for dementia, patient was just recently discharged from [facility] to rehabilitation center, he was treated for pneumonia. his talking out of the rehabilitation center and brought him back home after not been happy with the care at this facility however patient has had progressive debilitation, weakness. history has been obtained from who is at bedside patient unable to provide any history due to his dementia.? He is brought today for further evaluation preliminary workup was significant for chest x-ray was reported as Patchy left lower lobe infiltrate and/or atelectasis 06/17/2022 interval history: Patient presented with generalized weakness is found to have pneumonia patient b
--- NOTE | 2022-06-17 13:19 | PCNWS ---
Weekly nutritional screen. Patient is tolerating current diet with adequate intake. No weight loss reported. No nutritional needs at this time.
[2022-06-17] MEDS: traZODone HCL 50 MG TABLET PO (20:34)
[2022-06-17] MEDS: SODIUM CHLORIDE 0.9% IV 1,000 ML 125 ML IV CONT ×2 (20:34→21:19)
[2022-06-17] MEDS: ASPIRIN 81 MG ENTERIC TABLET PO (20:34)
[2022-06-18] VITALS (13 sets, daily range): BP systolic 128–139; BP diastolic 62–73; PULSE 61–74; RESP 16–20; TEMP 36.1–36.6; O2SAT 91–93
[2022-06-18] MEDS: ALBUTEROL SULFATE NEB 2.5 MG/3 ML INH INHALATION ×3 (02:46→13:28)
[2022-06-18] MEDS: IPRATROPIUM BR 0.02% INH SOLN 0.5 MG/2.5 ML VIAL INHALATION ×3 (02:46→13:28)
[2022-06-18 06:50] LABS: Hematocrit 41.9 % (42.0-52.0); Hemoglobin 13.5 g/dL (14.0-18.0); Mean Corpuscular HGB Conc 32.2 g/dl (32-36); Mean Corpuscular Hemoglobin 32.2 pg (26-34); Mean Platelet Volume 9.1 fl (7.4-10.4); Platelet Count Result 270 k/mm3 (150-375); Red Blood Count 4.19 M/mm3 (4.6-6.20); Red Cell Distribution Width 13.8 % (11.5-14.5); White Blood Count 9.5 K/mm3 (4.5-10.0)
[2022-06-18 07:06] LABS: Anion Gap 13 mmol/L (8-16); Blood Urea Nitrogen 7 mg/dL (9-20); Carbon Dioxide 24 mmol/L (22-30); Chloride 106 mmol/L (98-107); Estimated CRCL calculation 85 ml/min; Estimated Glomerular Filt Rate > 60; Glucose 131 mg/dL (65-110); Magnesium 1.8 mg/dL (1.6-2.3); Potassium 3.4 mmol/L (3.4-5.0); Sodium 143 mmol/L (137-145)
[2022-06-18 07:54] LABS: Creatine Kinase MB 0.5 ng/mL (0.0-2.37); NT Pro B Type Natriuretic Pept 2430 pg/mL (5-100); Troponin I < 0.012 ng/mL (0.000-0.034)
[2022-06-18] MEDS: POTASSIUM CHLORIDE 20 MEQ TABLET 40 MEQ PO (09:21)
[2022-06-18] MEDS: MEMANTINE 5 MG TABLET PO ×2 (09:22→17:15)
[2022-06-18] MEDS: ESCITALOPRAM OXALATE 10 MG TABLET 20 MG PO (09:22)
[2022-06-18] MEDS: PANTOPRAZOLE 40 MG TABLET PO (09:22)
[2022-06-18] MEDS: MULTIVITS W-FE,MIN CHEWABLE TABLET 1 TABLET PO (09:23)
[2022-06-18] MEDS: CHOLECALCIFEROL 1,000 UNITS TABLET 1000 UNITS PO (09:23)
[2022-06-18] MEDS: LORATADINE 10 MG TABLET PO (09:24)
[2022-06-18] MEDS: METOPROLOL SUCCINATE EXT REL 12.5 MG TABCR PO (09:24)
[2022-06-18] MEDS: ENOXAPARIN 40 MG/0.4 ML SYRINGE SUB-Q (09:26)
[2022-06-18] MEDS: OLMESARTAN MEDOXOMIL 10 MG TABLET PO (09:26)
[2022-06-18] MEDS: OLMESARTAN MEDOXOMIL 20 MG TABLET PO (09:26)
[2022-06-18] MEDS: SODIUM CHLORIDE 0.9% IV 1,000 ML 125 ML IV CONT (12:09)
--- NOTE | 2022-06-18 13:39 | PCSTNOTE ---
Attempted to do bedside swallowing evaluation. Patient unavailable due to receiving personal care from nursing staff at this time. Patient will be scheduled for swallowing evaluation tomorrow. Per nursing patient ate 100% of lunch today.
--- NOTE | 2022-06-18 15:24 | PM.IMPN ---
Progress Note: A&P Assessment and Plan (1) HCAP (healthcare-associated pneumonia): Code(s): J18.9 - Pneumonia, unspecified organism Status: Acute Assessment and Plan: admit to regular medical floor started on aztreonam and vancomycin cultures in progress HPI-Narrative: ?This is an 81-year-old male with past medical history significant for dementia, patient was just recently discharged from [facility] to rehabilitation [place], he was treated for pneumonia. his talking out of the rehabilitation center and brought him back home after not been happy with the care at this facility however patient has had progressive debilitation, weakness. history has been obtained from who is at bedside patient unable to provide any history due to his dementia.? 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 and on and off he does not eat, drink fluids or communicate, it has been difficult for patient 's to manage, after the last discharge patient was sent to rehab he did not do very well there and his pulled him out and took home, and apparently it is difficult for her to manage at home too, on 06/13 both blood culture bottles were growing Staphylococcus epidermidis discussed with ID pharmacy concerning contamination, suggested to continue IV antibiotics repeat blood culture, no growth so far, also concerning for endocarditis, was seen by charhouse worker and recommended SHANA to further evaluation, on 06/15 patient had a SHANA and showed vegetation on aortic valve, now patient will require total 6 weeks of IV antibiotics discussed with the ID pharmacist, plan is to place PICC line on Wednesday 06/20, once second set of blood culuture is negative, , patient is clinically stable and there are no new complaints, today is daughter is present in the [place], and further recommendation to follow patient (2) Generalized weakness: Code(s): R53.1 - Weakness Status: Acute Assessment and Plan: likely secondary to advanced illness and deconditioning (3) Atrial fibrillation: Qualifiers: Atrial fibrillation type: unspecified Qualified Code(s): I48.91 - Unspecified atrial fibrillation Code(s): I48.91 - Unspecified atrial fibrillation Status: Acute Assessment and Plan: continue to monitor (4) Alzheimer's dementia: Code(s): G30.9 - Alzheimer's disease, unspecified; F02.80 - Dementia in other diseases classified elsewhere, unspecified severity, without behavioral disturbance, psychotic disturbance, mood disturbance, and anxiety Status: Acute Assessment and Plan: continue memantine Subjective Date/time seen: 06/18/22 15:24 HPI-Narrative: ?This is an 81-year-old male with past medical history significant for dementia, patient was just recently discharged from [facility] to rehabilitation center, he was treated for pneumonia. his talking out of the rehabilitation center and brought him back home after not been happy with the care at this facility however patient has had progressive debilitation, weakness. history has been obtained from who is at bedside patient unable to provide any history due to his dementia.? He is brought today for further evaluation preliminary workup was significant for chest x-ray was reported as Patchy left lower lobe infiltrate and/or atelectasis 06/18/2022 interval history: [place]
[2022-06-19] VITALS (14 sets, daily range): BP systolic 126–153; BP diastolic 64–70; PULSE 65–87; RESP 16–20; TEMP 36.2–36.6; O2SAT 90–94
[2022-06-19] MEDS: SODIUM CHLORIDE 0.9% IV 1,000 ML 125 ML IV CONT ×2 (00:26→10:49)
--- NOTE | 2022-06-19 01:24 | PC.NURSE ---
Daylight Savings Time For Daylight Savings Time Ending in the Fall - Clocks are moved back. For Daylight Savings Time Beginning in the Spring - Clocks are moved ahead. For [facility], the time of change occurs at 0200 hrs. Time is taken from the locomotive observer. This entry on the patient's chart recognizes the change in time reflected during documentation. Example: 2 entries for vital signs may be charted for 0200 hrs.
[2022-06-19] MEDS: METOPROLOL SUCCINATE EXT REL 12.5 MG TABCR PO (08:53)
[2022-06-19] MEDS: ENOXAPARIN 40 MG/0.4 ML SYRINGE SUB-Q (08:57)
[2022-06-19] MEDS: MEMANTINE 5 MG TABLET PO ×2 (09:00→16:42)
[2022-06-19] MEDS: ESCITALOPRAM OXALATE 10 MG TABLET 20 MG PO (09:00)
[2022-06-19] MEDS: CHOLECALCIFEROL 1,000 UNITS TABLET 1000 UNITS PO (09:01)
[2022-06-19] MEDS: LORATADINE 10 MG TABLET PO (09:01)
[2022-06-19] MEDS: OLMESARTAN MEDOXOMIL 10 MG TABLET PO (09:02)
[2022-06-19] MEDS: OLMESARTAN MEDOXOMIL 20 MG TABLET PO (09:02)
[2022-06-19] MEDS: MULTIVITS W-FE,MIN CHEWABLE TABLET 1 TABLET PO (09:02)
[2022-06-19] MEDS: PANTOPRAZOLE 40 MG TABLET PO (09:03)
[2022-06-19] MEDS: ALBUTEROL SULFATE NEB 2.5 MG/3 ML INH INHALATION ×3 (09:52→21:10)
[2022-06-19] MEDS: IPRATROPIUM BR 0.02% INH SOLN 0.5 MG/2.5 ML VIAL INHALATION ×3 (09:52→21:10)
--- NOTE | 2022-06-19 18:01 | PM.IMPN ---
Progress Note: A&P Assessment and Plan (1) Endocarditis: Qualifiers: Chronicity: subacute Endocarditis type: infective Infective endocarditis organism: bacterial Qualified Code(s): I33.0 - Acute and subacute infective endocarditis Code(s): I38 - Endocarditis, valve unspecified Status: Acute Assessment and Plan: Likely SBE with Staph Epi bacteremia Continue Vancomycin for 6 weeks PICC planned for 06/20 (2) HCAP (healthcare-associated pneumonia): Code(s): J18.9 - Pneumonia, unspecified organism Status: Acute Assessment and Plan: Completed course of aztreonam along with vanc with the latter continued due to SBE (3) Generalized weakness: Code(s): R53.1 - Weakness Status: Acute Assessment and Plan: likely secondary to acute illness and deconditioning (4) Atrial fibrillation: Qualifiers: Atrial fibrillation type: unspecified Qualified Code(s): I48.91 - Unspecified atrial fibrillation Code(s): I48.91 - Unspecified atrial fibrillation Status: Acute Assessment and Plan: rate controlled discontinue telemetry as he is DNR status (5) Alzheimer's dementia: Code(s): G30.9 - Alzheimer's disease, unspecified; F02.80 - Dementia in other diseases classified elsewhere, unspecified severity, without behavioral disturbance, psychotic disturbance, mood disturbance, and anxiety Status: Acute Assessment and Plan: memantine is at a relatively homeopathic dose of 5mg bid Given the degree of his dementia, it is unlikely to be of benefit as monotherapy Subjective Date/time seen: 06/19/22 18:01 Interval history: FOLLOW-UP ENDOCARDITIS PATIENT ATE WELL TODAY. BUT ACCORDING TO DAUGHTER WHO IS AT BEDSIDE HE IS A BIT TIRED AND CRABBY. HE HAS COMPLAINED OF SOME UPPER ABDOMINAL TO CHEST DISCOMFORT. NO OTHER ASSOCIATED SYMPTOMS. NO SWEATS. NO SHORTNESS OF BREATH. BOWELS MOVED. NO NOTED BLEEDING. ALL OF HISTORY IS PROVIDED BY DAUGHTER IS PATIENT IS UNABLE TO PROVIDE HISTORY Review of Systems Review of Systems: ROS unobtainable: Yes unobtainable due to medical condition Exam Narrative: obese elderly gentleman lying comfortably in his hospital bed. He is alert but oriented to person only. Sclerae nonicteric neck without JVD chest clear to auscultation with diminished breath sounds at bases heart normal S1 and S2 without audible click gallop murmur rub rate is regular abdomen is protuberant with good bowel sounds soft and nontender extremities without edema cyanosis or clubbing musculoskeletal without gross deformity to visual inspection neurologic cranial nerves symmetric to visual inspection Objective Data Vital Signs Vital Signs: Vital Signs - 24 hr 06/18/22 21:22 06/18/22 20:00 06/19/22 00:00 Temperature 97.8 F Pulse Rate 68 70 76 Respiratory Rate 20 Blood Pressure 139/70 Pulse Oximetry 91 Oxygen Delivery 06/19/22 04:00 06/19/22 06:00 06/19/22 08:53 Temperature 97.2 F L Pulse Rate 87 68 68 Respiratory Rate 18 Blood Pressure 153/70 H Pulse Oximetry 90 Oxygen Delivery 06/19/22 09:45 06/19/22 09:53 06/19/22 09:56 Temperature Pulse Rate 79 76 Respiratory Rate 18 18 Blood Pressure Pulse Oximetry 92 Oxygen Delivery Room Air 06/19/22 08:00 06/19/22 12:00 06/19/22 14:00 Temperature 97.7 F Pulse Rate 69 72 70 Respiratory Rate 20 Blood Pressure 129/68 Pulse Oximetry 94 Oxygen Delivery 06/19/22 14:32 06/19/22 16:00 Temperature Pulse Rate 74 69 Respiratory Rate 18 Blood Pressure Pulse Oximetry Oxygen Delivery Intake/Output Intake/Output: Intake & Output 06/16/22 06/17/22 06/18/22 06/19/22 23:59 23:59 23:59 22:59 Intake Total 3922 3700 3920 1860 Output Total 2 Balance 3920 3700 3920 1860 Meds/Results Medications: Active Medications Generic Name Dose Route Start Last Admin Trade Name Freq
[2022-06-19] MEDS: ASPIRIN 81 MG ENTERIC TABLET PO (20:10)
[2022-06-19] MEDS: traZODone HCL 50 MG TABLET PO (20:10)
[2022-06-19] MEDS: FAMOTIDINE 20 MG TABLET PO (20:10)
[2022-06-20] VITALS (8 sets, daily range): BP systolic 142–158; BP diastolic 75–81; PULSE 68–82; RESP 16–20; TEMP 36.6–37.2; O2SAT 91–95
[2022-06-20] MEDS: SODIUM CHLORIDE 0.9% IV 1,000 ML 125 ML IV CONT ×2 (05:36→14:08)
[2022-06-20 06:41] LABS: Estimated CRCL calculation 74 ml/min; Estimated Glomerular Filt Rate > 60
[2022-06-20] MEDS: IPRATROPIUM BR 0.02% INH SOLN 0.5 MG/2.5 ML VIAL INHALATION ×2 (08:21→17:43)
[2022-06-20] MEDS: ALBUTEROL SULFATE NEB 2.5 MG/3 ML INH INHALATION ×2 (08:21→17:42)
[2022-06-20] MEDS: LORATADINE 10 MG TABLET PO (09:26)
[2022-06-20] MEDS: MEMANTINE 5 MG TABLET PO ×2 (09:26→17:18)
[2022-06-20] MEDS: MULTIVITS W-FE,MIN CHEWABLE TABLET 1 TABLET PO (09:26)
[2022-06-20] MEDS: PANTOPRAZOLE 40 MG TABLET PO (09:26)
[2022-06-20] MEDS: ESCITALOPRAM OXALATE 10 MG TABLET 20 MG PO (09:26)
[2022-06-20] MEDS: ENOXAPARIN 40 MG/0.4 ML SYRINGE SUB-Q (09:26)
[2022-06-20] MEDS: OLMESARTAN MEDOXOMIL 10 MG TABLET PO (09:26)
[2022-06-20] MEDS: METOPROLOL SUCCINATE EXT REL 12.5 MG TABCR PO (09:26)
[2022-06-20] MEDS: OLMESARTAN MEDOXOMIL 20 MG TABLET PO (09:26)
[2022-06-20] MEDS: FAMOTIDINE 20 MG TABLET PO ×2 (09:26→20:39)
[2022-06-20 12:45] LABS: Vancomycin Trough 20.1 ug/mL (10.0-20.0)
--- NOTE | 2022-06-20 18:04 | PM.IMPN ---
Progress Note: A&P Assessment and Plan (1) Endocarditis: Qualifiers: Endocarditis type: infective Infective endocarditis organism: bacterial Chronicity: subacute Qualified Code(s): I33.0 - Acute and subacute infective endocarditis Code(s): I38 - Endocarditis, valve unspecified Status: Acute Assessment and Plan: Likely SBE with Staph Epi bacteremia Continue Vancomycin for 6 weeks PICC planned for 06/20 however family unsure about this plan as this will be discomforting. discussed pros and cons (2) HCAP (healthcare-associated pneumonia): Code(s): J18.9 - Pneumonia, unspecified organism Status: Acute Assessment and Plan: Completed course of aztreonam along with vanc with the latter continued due to SBE (3) Generalized weakness: Code(s): R53.1 - Weakness Status: Acute Assessment and Plan: likely secondary to acute illness and deconditioning (4) Atrial fibrillation: Qualifiers: Atrial fibrillation type: unspecified Qualified Code(s): I48.91 - Unspecified atrial fibrillation Code(s): I48.91 - Unspecified atrial fibrillation Status: Acute Assessment and Plan: rate controlled discontinue telemetry as he is DNR status (5) Alzheimer's dementia: Code(s): G30.9 - Alzheimer's disease, unspecified; F02.80 - Dementia in other diseases classified elsewhere, unspecified severity, without behavioral disturbance, psychotic disturbance, mood disturbance, and anxiety Status: Acute Assessment and Plan: memantine is at a relatively homeopathic dose of 5mg bid Given the degree of his dementia, it is unlikely to be of benefit as monotherapy Plan wheezing; noted recehck cxr reveiwd bilateral opacities. will stop ivf today. and mointor. no leg swelling noted. if worsening hypoxia, may give a small dose of lasix. Goals of care discussion: discussed treatmeent mohan will include monitoring of labs, possibilityo f complications. also opened the discussion about hospice and possible referral to the hospice. Subjective Date/time seen: 06/20/22 18:04 Interval history: FOLLOW-UP ENDOCARDITIS no overnight events. Patient has been tired and sleeping mostly. on the phone and daughter at bedside discussed with them. refusing to get PICC line as he has been getting lots of pokes and this could be discomforting for him. Discussed this it be how we will be treating his infection and PICC line will be necessary to provide a longer course of antibiotics as is planned. Also opened up discussion about hospice as this is not what his desire has been as reported by his . Review of Systems Review of Systems: ROS unobtainable: Yes unobtainable due to medical condition Exam Narrative: obese elderly gentleman lying comfortably in his hospital bed. Mild upper respiratory wheezes noted intermittently He is alert but oriented to person only. Sclerae nonicteric neck without JVD chest coarse breath sound bilaterally with diminished at the basis heart normal S1 and S2 without audible click gallop murmur rub rate is regular abdomen is protuberant with good bowel sounds soft and nontender extremities without edema cyanosis or clubbing musculoskeletal without gross deformity to visual inspection neurologic cranial nerves symmetric to visual inspection Objective Data Vital Signs Vital Signs: Vital Signs - 24 hr 06/19/22 21:12 06/19/22 21:46 06/20/22 05:59 Temperature 97.9 F 97.9 F Pulse Rate 74 65 68 Respiratory Rate 16 20 20 Blood Pressure 126/64 142/81 H Pulse Oximetry 92 95 06/20/22 08:21 06/20/22 08:36 06/20/22 09:26 Temperature Pulse Rate 71 78 68 Respiratory Rate 16 16 Blood Pressure Pulse Oximetry 06/20/22 15:07 06/20/22 17:37 06/20/22 17:47 Temperature 98.2 F Pulse Rate 70 82 76 Respiratory Rate 18 18 18 Blood Pressure 158/80 H Pulse Oximetry 93 Intake/Output In
[2022-06-20] MEDS: ASPIRIN 81 MG ENTERIC TABLET PO (20:39)
[2022-06-20] MEDS: traZODone HCL 50 MG TABLET PO (20:39)
[2022-06-20] MEDS: NITROGLYCERIN SL 0.4 MG TABLET SUBLINGUAL (21:20)
[2022-06-21] VITALS (10 sets, daily range): BP systolic 122–150; BP diastolic 60–71; PULSE 62–89; RESP 20; TEMP 36.8–36.9; O2SAT 89–94
[2022-06-21] MEDS: SODIUM CHLORIDE 0.9% IV 1,000 ML 125 ML IV CONT (00:32)
--- NOTE | 2022-06-21 03:08 | PCRCNOTE ---
pt's asked that if pt was not in distress not to wake the pt as that would upset him. RT listened to pt and pt was diminished, no wheezing. RT advised pt's to call if he was in need of treatment.
[2022-06-21 06:15] LABS: Basophils Absolute Auto 0.1 K/mm3 (0.0-0.1); Basophils Percent Auto 1.1 % (0.2-1.2); Eosinophils Absolute Auto 0.6 K/mm3 (0-0.3); Eosinophils Percent Auto 4.5 % (0-4.4); Hematocrit 38.1 % (42.0-52.0); Hemoglobin 12.3 g/dL (14.0-18.0); Immature Granulocyte Absolute 0.08 K/mm3 (0.00-0.031); Immature Granulocyte Percent A 0.6 % (0-0.5); Lymphocytes Absolute Auto 2.07 K/mm3 (0.9-3.2); Lymphocytes Percent Auto 16.8 % (18.3-44.2); Mean Corpuscular HGB Conc 32.3 g/dl (32-36); Mean Corpuscular Hemoglobin 31.8 pg (26-34); Mean Corpuscular Volume 98.4 fl (80-100); Mean Platelet Volume 8.9 fl (7.4-10.4); Monocytes Absolute Auto 1.2 K/mm3 (0.1-0.6); Monocytes Percent Auto 9.7 % (2.6-8.5); Neutrophils Absolute Auto 8.3 K/mm3 (1.3-6.7); Neutrophils Percent Auto 67.3 % (45.5-73.1); Platelet Count Result 309 k/mm3 (150-375); Red Blood Count 3.87 M/mm3 (4.6-6.20); White Blood Count 12.3 K/mm3 (4.5-10.0)
[2022-06-21 06:26] LABS: Alanine Aminotransferase 18 U/L (6-50); Albumin Level 3.2 g/dL (3.5-5.1); Alkaline Phosphatase 73 U/L (38-126); Anion Gap 11 mmol/L (8-16); Aspartate Amino Transferase 20 U/L (17-59); Bilirubin,Total 0.4 mg/dL (0.2-1.3); Blood Urea Nitrogen 6 mg/dL (9-20); Calcium 7.5 mg/dL (8.4-10.2); Carbon Dioxide 25 mmol/L (22-30); Chloride 106 mmol/L (98-107); Estimated CRCL calculation 74 ml/min; Estimated Glomerular Filt Rate > 60; Glucose 110 mg/dL (65-110); Magnesium 1.8 mg/dL (1.6-2.3); Potassium 3.1 mmol/L (3.4-5.0); Sodium 142 mmol/L (137-145)
[2022-06-21] MEDS: ALBUTEROL SULFATE NEB 2.5 MG/3 ML INH INHALATION ×2 (07:57→14:57)
[2022-06-21] MEDS: IPRATROPIUM BR 0.02% INH SOLN 0.5 MG/2.5 ML VIAL INHALATION ×2 (07:58→14:57)
[2022-06-21] MEDS: FUROSEMIDE INJ 40 MG/4 ML VIAL IV PUSH (08:19)
[2022-06-21] MEDS: NITROGLYCERIN SL 0.4 MG TABLET SUBLINGUAL (08:30)
[2022-06-21] MEDS: CHOLECALCIFEROL 1,000 UNITS TABLET 1000 UNITS PO (09:22)
[2022-06-21] MEDS: FAMOTIDINE 20 MG TABLET PO (09:22)
[2022-06-21] MEDS: MEMANTINE 5 MG TABLET PO ×2 (09:22→19:45)
[2022-06-21] MEDS: ESCITALOPRAM OXALATE 10 MG TABLET 20 MG PO (09:22)
[2022-06-21] MEDS: LORATADINE 10 MG TABLET PO (09:22)
[2022-06-21] MEDS: ENOXAPARIN 40 MG/0.4 ML SYRINGE SUB-Q (09:22)
[2022-06-21] MEDS: POTASSIUM CHLORIDE 20 MEQ TABLET 40 MEQ PO (09:22)
[2022-06-21] MEDS: OLMESARTAN MEDOXOMIL 10 MG TABLET PO (09:23)
[2022-06-21] MEDS: MULTIVITS W-FE,MIN CHEWABLE TABLET 1 TABLET PO (09:23)
[2022-06-21] MEDS: METOPROLOL SUCCINATE EXT REL 12.5 MG TABCR PO (09:23)
[2022-06-21] MEDS: OLMESARTAN MEDOXOMIL 20 MG TABLET PO (09:23)
[2022-06-21] MEDS: LORazepam (*CRX) 0.5 MG TABLET PO (12:07)
--- NOTE | 2022-06-21 14:31 | PM.IMPN ---
Progress Note: A&P Assessment and Plan (1) Endocarditis: Qualifiers: Endocarditis type: infective Infective endocarditis organism: bacterial Chronicity: subacute Qualified Code(s): I33.0 - Acute and subacute infective endocarditis Code(s): I38 - Endocarditis, valve unspecified Status: Acute Assessment and Plan: Likely SBE with Staph Epi bacteremia Continue Vancomycin for 6 weeks PICC planned for 06/20 however family unsure about this plan as this will be discomforting. discussed pros and cons Family has now opted for hospice enrollment. Arrangements being done (2) HCAP (healthcare-associated pneumonia): Code(s): J18.9 - Pneumonia, unspecified organism Status: Acute Assessment and Plan: Completed course of aztreonam along with vanc with the latter continued due to SBE (3) Generalized weakness: Code(s): R53.1 - Weakness Status: Acute Assessment and Plan: likely secondary to acute illness and deconditioning (4) Atrial fibrillation: Qualifiers: Atrial fibrillation type: unspecified Qualified Code(s): I48.91 - Unspecified atrial fibrillation Code(s): I48.91 - Unspecified atrial fibrillation Status: Acute Assessment and Plan: rate controlled discontinue telemetry as he is DNR status (5) Alzheimer's dementia: Code(s): G30.9 - Alzheimer's disease, unspecified; F02.80 - Dementia in other diseases classified elsewhere, unspecified severity, without behavioral disturbance, psychotic disturbance, mood disturbance, and anxiety Status: Acute Assessment and Plan: memantine is at a relatively homeopathic dose of 5mg bid Given the degree of his dementia, it is unlikely to be of benefit as monotherapy (6) Hypoxia: Code(s): R09.02 - Hypoxemia Status: Acute Assessment and Plan: Hypoxic 06/21/2022 chest x-ray with congestive changes. Received IV Lasix with some improvement Plan wheezing; noted recehck cxr reveiwd bilateral opacities. Stop IV fluid. And mointor. no leg swelling noted. if worsening hypoxia, may give a small dose of lasix. Goals of care discussion: discussed treatmeent mohan will include monitoring of labs, possibilityo f complications. also opened the discussion about hospice and possible referral to the hospice. Subjective Date/time seen: 06/21/22 14:31 Interval history: FOLLOW-UP ENDOCARDITIS no overnight events. Patient has been tired and sleeping mostly. on the phone and daughter at bedside discussed with them. refusing to get PICC line as he has been getting lots of pokes and this could be discomforting for him. Discussed this it be how we will be treating his infection and PICC line will be necessary to provide a longer course of antibiotics as is planned. Also opened up discussion about hospice as this is not what his desire has been as reported by his . 06/21/2022: Patient noted to be hypoxic this morning. Received IV Lasix and being quite a bit while have went for evaluation. He is already improved since getting Lasix. Family had decided on hospice and arrangements is being done currently Review of Systems Review of Systems: ROS unobtainable: Yes unobtainable due to medical condition Exam Narrative: obese elderly gentleman lying comfortably in his hospital bed. No respiratory distress He is alert but oriented to person only. Sclerae nonicteric neck without JVD chest coarse breath sound bilaterally with diminished at the basis heart normal S1 and S2 without audible click gallop murmur rub rate is regular abdomen is protuberant with good bowel sounds soft and nontender extremities without edema cyanosis or clubbing musculoskeletal without gross deformity to visual inspection neurologic cranial nerves symmetric to visual inspection Objective Data Vital Signs Vital Signs: Vital Signs - 24 hr 06/20/22 15:07 06/20/22 17:37
--- NOTE | 2022-06-21 14:57 | PM.DS ---
DS: Admitting Diagnosis Discharge Date 06/21/2022 Admitting Diagnosis Generalized weakness DS: Discharge Diagnosis Discharge Diagnosis (1) Endocarditis: Qualifiers: Endocarditis type: infective Infective endocarditis organism: bacterial Chronicity: subacute Qualified Code(s): I33.0 - Acute and subacute infective endocarditis Code(s): I38 - Endocarditis, valve unspecified Status: Acute (2) HCAP (healthcare-associated pneumonia): Code(s): J18.9 - Pneumonia, unspecified organism Status: Acute (3) Generalized weakness: Code(s): R53.1 - Weakness Status: Acute (4) Atrial fibrillation: Qualifiers: Atrial fibrillation type: unspecified Qualified Code(s): I48.91 - Unspecified atrial fibrillation Code(s): I48.91 - Unspecified atrial fibrillation Status: Acute (5) Alzheimer's dementia: Code(s): G30.9 - Alzheimer's disease, unspecified; F02.80 - Dementia in other diseases classified elsewhere, unspecified severity, without behavioral disturbance, psychotic disturbance, mood disturbance, and anxiety Status: Acute (6) Hypoxia: Code(s): R09.02 - Hypoxemia Status: Acute DS: Summary Hospital Course Hospital Course: # aortic valve endocarditis: Likely SBE with Staph Epi bacteremia Patient planned for continuation of vancomycin for 6 total weeks. However discussing pros and cons with long-term antibiotic therapy, PICC line placement and continued lab draws for monitoring family opted for hospice enrollment and was switched to hospice and arrangements were done. Delete that # Hcap: Completed course of aztreonam along with vanc with the latter continued due to SBE # generalized weakness: ?likely secondary to acute illness and deconditioning. # atrial fibrillation: ? rate controlled ?discontinue telemetry as he is DNR status # Alzheimer's dementia: memantine is at a relatively homeopathic dose of 5mg bid Given the degree of his dementia, it is unlikely to be of benefit as monotherapy # hypoxia: Hypoxic 06/21/2022 chest x-ray with congestive changes.? Received IV Lasix with some improvement Time Spent with Patient Time attestation: Total time spent providing and/or coordinating discharge services: 45 minutes Exam Narrative: obese elderly gentleman lying comfortably in his hospital bed. No respiratory distress He is alert but oriented to person only. Sclerae nonicteric neck without JVD chest coarse breath sound bilaterally with diminished at the basis heart normal S1 and S2 without audible click gallop murmur rub rate is regular abdomen is protuberant with good bowel sounds soft and nontender extremities without edema cyanosis or clubbing musculoskeletal without gross deformity to visual inspection neurologic cranial nerves symmetric to visual inspection DS: Data Data Completed and Pending Labs on day of discharge: Labs from last 24 hours 06/21/22 06/21/22 05:54 05:54 WBC 12.3 H RBC 3.87 L Hgb 12.3 L Hct 38.1 L MCV 98.4 MCH 31.8 MCHC 32.3 RDW 14.0 Plt Count 309 MPV 8.9 Immature Gran % (Auto) 0.6 H Neut % (Auto) 67.3 Lymph % (Auto) 16.8 L Hoke % (Auto) 9.7 H Eos % (Auto) 4.5 H Baso % (Auto) 1.1 Lymph # (Auto) 2.07 Hoke # (Auto) 1.2 H Eos # (Auto) 0.6 H Baso # (Auto) 0.1 Abs Immat Gran (auto) 0.08 H Absolute Neuts (auto) 8.3 H Absolute Nucleated RBC 0.0 Nucleated RBC % 0.0 Sodium 142 Potassium 3.1 L Chloride 106 Carbon Dioxide 25 Anion Gap 11 BUN 6 L Creatinine 0.70 Estim Creat Clear Calc 74 Estimated GFR > 60 Glucose 110 Calcium 7.5 L Magnesium 1.8 Total Bilirubin 0.4 AST 20 ALT 18 Alkaline Phosphatase 73 Total Protein 6.0 L Albumin 3.2 L Preliminary micro results at discharge 06/16/22 07:10 Blood Culture - Preliminary Blood 06/16/22 08:36 Blood Culture - Preliminary Blood
--- NOTE | 2022-06-21 18:08 | PC.NURSE ---
07 Dr Chang notified of pt wheezing and SOB. RA sat 80% placed on 4liters and turned ivf off. New orders received
[2022-06-21] MEDS: LORazepam (*CRX) 1 MG TABLET PO (19:07)
[2022-06-21] MEDS: traZODone HCL 50 MG TABLET PO (19:45)
--- NOTE | 2022-06-21 23:03 | PCRCNOTE ---
Window of time for administration has passed. See next scheduled administration.
== END 2022-06-21 20:00 | disposition hospice, home (50) | DRG 288 ==
LOC: ANHED 21:07 → ANH3MEDSUR 23:10
PROVIDERS: Family Medicine; Internal Medicine Cardiovascular Disease; Nurse Practitioner; Admitting Provider Internal Medicine; Emergency Provider Emergency Medicine; PCP Physician Assistant Medical; Visit Provider Internal Medicine
PROC: B24BZZ4 Ultrasonography of Heart with Aorta, Transesophageal (ICD-10-PCS; CPT 93312; principal; 2022-06-15 11:00)
DX: I33.0 Acute and subacute infective endocarditis (principal); J18.9 Pneumonia, unspecified organism; B95.7 Other staphylococcus as the cause of diseases classified elsewhere; Z20.822 Contact with and (suspected) exposure to COVID-19; I48.91 Unspecified atrial fibrillation; G30.9 Alzheimer's disease, unspecified; F02.80 Dementia in other diseases classified elsewhere, unspecified severity, without behavioral disturbance, psychotic disturbance, mood disturbance, and anxiety; R09.02 Hypoxemia; I25.10 Atherosclerotic heart disease of native coronary artery without angina pectoris; F31.9 Bipolar disorder, unspecified; E11.9 Type 2 diabetes mellitus without complications; F41.9 Anxiety disorder, unspecified; Z79.82 Long term (current) use of aspirin; Z87.891 Personal history of nicotine dependence; Z95.1 Presence of aortocoronary bypass graft; Z66 Do not resuscitate
CPT/HCPCS: 36415; 70450; 71045; 80048; 80053; 80202; 81001; 82550; 82553; 82565; 83605; 83735; 83880; 84145; 84484; 85025; 85027; 85610; 85730; 87040; 87077; 87186; 87502; 92610; 93005; 93312; 93320; 93325; 94640; 96360; 96366; 96367; 96372; 97161; 97165; 99285; A9270; G0378; J1650; J1940; J2250; J2310; J3010; J3370; J7030; U0003; U0005